=== PATIENT | female | born 1960 | race Caucasian/White ===

== ENCOUNTER → 2018-03-11 07:16 | Outpatient (CLI) | payer OTHER, SELFPAY ==
[2018-03-11 10:25] LABS: Hemoglobin A1c 5.6 % (4.2-6.3)
[2018-03-11 10:28] LABS: Anion Gap 9 (5-15); BUN 16 mg/dL (7-18); Calcium,Total 9.3 mg/dL (8.5-10.1); Chloride 104 mmol/L (98-107); Cholesterol 191 mg/dL (200); Creatinine, Serum 0.76 mg/dL (0.55-1.02); EST Glomerular Filtration Rate 83 mL/min (>60); Est Glom Filt Rate - Afr Amer 101 mL/min (>60); Glucose 118 mg/dL (74-106); High Density Lipoprotein 51 mg/dL; Potassium 3.5 mmol/L (3.5-5.1); Sodium Level 140 mmol/L (136-145); Triglycerides 123 mg/dL; Very Low Density Lipoprotein 25 mg/dL (5-40)
== END ==
PROVIDERS: Family Provider Family Medicine; PCP Family Medicine; Visit Provider Family Medicine
DX: I10 Essential (primary) hypertension (principal); E78.00 Pure hypercholesterolemia, unspecified; R73.03 Prediabetes
CPT/HCPCS: 36415; 80048; 80061; 83036

== ENCOUNTER → 2019-06-23 08:12 | Outpatient (CLI) | payer OTHER, SELFPAY ==
[2019-06-23 10:31] LABS: Anion Gap 9 (5-15); BUN 14 mg/dL (7-18); Chloride 103 mmol/L (98-107); Cholesterol 184 mg/dL (200); Creatinine, Serum 0.78 mg/dL (0.55-1.02); EST Glomerular Filtration Rate 81 mL/min (>60); Est Glom Filt Rate - Afr Amer 98 mL/min (>60); Glucose 126 mg/dL (74-106); Hemoglobin A1c 5.6 % (4.2-6.3); High Density Lipoprotein 50 mg/dL; Sodium Level 141 mmol/L (136-145); Triglycerides 127 mg/dL; Very Low Density Lipoprotein 25 mg/dL (5-40)
== END ==
PROVIDERS: Family Provider Family Medicine; PCP Family Medicine; Referring Provider Family Medicine; Visit Provider Family Medicine
DX: I10 Essential (primary) hypertension (principal); E78.00 Pure hypercholesterolemia, unspecified; R73.03 Prediabetes
CPT/HCPCS: 36415; 80048; 80061; 83036

== ENCOUNTER → 2019-09-01 14:08 | Outpatient (CLI) | payer OTHER, SELFPAY ==
[2019-09-01 15:55] LABS: Anion Gap 6 (5-15); BUN 14 mg/dL (7-18); BUN/Creat Ratio 17.6 RATIO (10-20); Calcium,Total 9.4 mg/dL (8.5-10.1); Chloride 103 mmol/L (98-107); EST Glomerular Filtration Rate 79 mL/min (>60); Est Glom Filt Rate - Afr Amer 95 mL/min (>60); Glucose 91 mg/dL (74-106); Potassium 3.4 mmol/L (3.5-5.1); Sodium Level 139 mmol/L (136-145)
== END ==
PROVIDERS: Family Provider Family Medicine; PCP Family Medicine; Referring Provider Family Medicine; Visit Provider Family Medicine
DX: I10 Essential (primary) hypertension (principal)
CPT/HCPCS: 36415; 80048

== ENCOUNTER → 2020-08-09 12:16 | Outpatient (CLI) | payer OTHER, SELFPAY ==
--- NOTE | 2020-08-09 12:20 | RAD_ITS ---
STUDY: X-RAY - LEFT ANKLE REASON FOR EXAM: Female, 59 years old. Ankle injury originally from a year ago -- pain now again after walking more TECHNIQUE: 3 view(s) of the ankle. COMPARISON: None. FINDINGS: Normal visualized distal tibia and fibula. Normal medial and lateral malleoli. Normal tibiotalar articulation and ankle mortise. Plantar spur. The visualized subtalar, talonavicular, calcaneocuboid and tarsal articulations are normal. The soft tissue structures are unremarkable. RAD/Ankle min 3 Views IMPRESSION: Plantar spur Electronically Signed: Jeremy Mcelroy, at 14:33 EDT , Service support ,
== END ==
PROVIDERS: PCP Family Medicine; Referring Provider Family Medicine; Visit Provider Family Medicine
DX: S86.009A Unspecified injury of unspecified Achilles tendon, initial encounter (principal)
CPT/HCPCS: 73610

== ENCOUNTER → 2020-08-30 07:17 | Outpatient (CLI) | payer OTHER, SELFPAY ==
[2016-10-22 12:33] VITALS: BMI 43.7
--- NOTE | 2020-08-30 07:41 | MRI_ITS ---
STUDY: MRI LEFT ANKLE WITHOUT CONTRAST REASON FOR EXAM: Female, 59 years old. throbbing burning pain foot/heel area and over top of tarsals, injury 17 mons ago TECHNIQUE: Standardized fat and water weighted pulse sequences were obtained in all 3 orthogonal planes. COMPARISON: 08/09/2020 FINDINGS: Normal subcutis adipose space. Normal posterior tibialis tendon. Normal flexor digitorum longus tendon. Normal flexor hallucis longus tendon. Normal peroneus longus and brevis tendons. 3 cm septated ganglion of the tibialis anterior tendon on the dorsum of the foot. Normal extensor hallucis longus tendon. Normal extensor digitorum longus tendons. Diffuse thickening of the distal Achilles tendon consistent with Achilles tendinosis. Edema uptake years fat pad consistent with peritendinitis is. 1 cm retrocalcaneal bursitis. Normal plantar fascia. Normal plantar calcaneal tubercles. Normal intrinsic muscles of the rearfoot. Normal distal tibiofibular syndesmotic ligamentous complex. Normal lateral ligamentous complex. Normal subtalar ligaments and sinus tarsi. Normal deltoid ligamentous complexes. Normal plantar calcaneonavicular (spring) ligament. Normal tibiotalar articulation. Normal talar dome. There is a joint effusion of the posterior subtalar articulation with capsular distension. Normal talonavicular articulation. Normal calcaneocuboid articulation. Normal navicular-cuneiform articulations. MRI/Lower Ext Joint Only (Routine) IMPRESSION: 1. 3 cm septated ganglion of the tibialis anterior tendon. 2. Insertional Achilles tendinosis, peritendinitis is, retrocalcaneal bursitis. Electronically Signed: Arsen Mueller MD at 9:31 EDT Tel , Service support ,
== END ==
PROVIDERS: PCP Family Medicine; Referring Provider Family Medicine; Visit Provider Family Medicine
DX: S86.009A Unspecified injury of unspecified Achilles tendon, initial encounter (principal)
CPT/HCPCS: 73721

== ENCOUNTER → 2020-12-04 08:21 | Outpatient (CLI) | payer OTHER, SELFPAY ==
[2016-10-22 12:33] VITALS: BMI 43.7
[2020-12-04 10:37] LABS: ALB/GLOB Ratio 1.1 RATIO (0.9-2.4); AST(SGOT) 38 U/L (15-37); Alanine Aminotransfer ALT/SGPT 67 U/L (13-56); Albumin, Serum 3.7 g/dL (3.2-5.0); Alkaline Phosphatase 86 U/L (45-117); Anion Gap 5 (5-15); BUN 13 mg/dL (7-18); BUN/Creat Ratio 15.6 RATIO (10-20); Calcium,Total 9.2 mg/dL (8.5-10.1); Chloride 106 mmol/L (98-107); Cholesterol 197 mg/dL (200); Creatinine, Serum 0.83 mg/dL (0.55-1.02); EST Glomerular Filtration Rate 75 mL/min (>60); Est Glom Filt Rate - Afr Amer 90 mL/min (>60); Globulin 3.4 g/dL (2.2-4.2); Glucose 123 mg/dL (74-106); High Density Lipoprotein 51 mg/dL; Potassium 3.3 mmol/L (3.5-5.1); Protein, Total 7.1 g/dL (6.4-8.2); Sodium Level 140 mmol/L (136-145); Triglycerides 114 mg/dL; Very Low Density Lipoprotein 23 mg/dL (5-40)
== END ==
PROVIDERS: PCP Family Medicine; Referring Provider Family Medicine; Visit Provider Family Medicine
DX: I10 Essential (primary) hypertension (principal)
CPT/HCPCS: 36415; 80053; 80061

== ENCOUNTER 2020-12-25 17:00 | Outpatient (RCR) | payer OTHER, SELFPAY ==
--- NOTE | 2020-09-19 10:26 | HP.PTEVAL_ITS ---
Patient's Visit Information YAMILA JON is a 59 year old F referred to Physical Therapy by Dr. Frankie Krause MD with a diagnosis of L achilles tendonitis. Date of Evaluation: 09/18/20 Physical Therapist: Ronnie Rico DPT - Visit Plan Frequency: 2x /Week Duration: 4-6 Weeks Plan: Start with G/S stretching, deep friction/graston, - Subjective Pt. is here today for her initial evaluation with diagnosis of L achilles tendonitis. Pt. reports having on and off symptoms for ~18 months. She believes it all started after mowing her daughter jon in wet grass. She felt after that her achilles was buring, but eventually went away. She got back to walking working from down the street upt[place] a few miles. He achilles again started to bother her so she stopped. She was given stretches from physician which she reports not completing consistently and has not stopped all together. Pt. reports increases distal achilles tendon pain with walking, stairs and has a lot of stiffness with getting up in AMs after sitting in a chair for a long period of time. 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 Pt. is hopeful to reduce symptoms in order to get back to rectational walking with good tolerance. - Pain L achilles tendon Pain Intensity (Out of 10): 3 Pain Intensity Range: 0, 7 - Objective POSTURE: Pt. has normal foot positining, normal arch heights, no signs of equinus foot positioning. Normal wt. shifting. PALPATION: Pt. has tenderness at insertion on achilles tendon on L side. Mild soreness throughout tendon. NEURO: normal sensation, normal DTR of BLEs. ROM: Pt. has normal ankle ROM of BLEs, except 12 deg of passive DF and 8 deg of active L DF. Tightness as limiting factor. MMT: 5/5 throughout without increase in symptoms. GAIT: Pt. walks without device. She does have normal pattern on her RLE. She does have early heel off and pain and forefoot rocker moment of LLE. STAIRS: Ascending no issu es. Descending- increased pain during L loading phase, resulting in early heel off to avoid pain. - Goals Goal 1:: LTG: Pt. to be I with HEP. Goal Time Frame: 4-6 Weeks Goal 2:: STG: Pt. to have decreased reported stiffness by 50% in AMs allowing for increased tolerance with initial walking. Goal Time Frame: 2-4 Weeks Goal 3:: LTG: Pt. to report no stiffness/pain with getting up in AMs or out of chair after prolonged sitting. Goal Time Frame: 4-6 Weeks Goal 4:: LTG: Pt. to have full DF ROM of L ankle without increase in symptoms. Goal Time Frame: 4-6 Weeks Goal 5:: LTG: Pt. to walk recreational distances without 0-2/10 symptoms in L achilles. Goal Time Frame: 4-6 Weeks Goal 6:: LTG: Pt. to descend steps with 1 HR with reciprocal pattern without increase in symptoms. Goal Time Frame: 4-6 Weeks - Rehabilitation Potential Physical Therapy Diagnosis: Pt. has signs and symptoms consistent with L achilles tendonitis. Pt. is hypomobile into L DF with pain and tightness as limiting factor. She frequently c/o increased stiffness in AMs and after prolonged sitting and increased pain with walking and descending steps. Pt. would benefit from PT to work on G/S stretching, modalities to reduce symptoms, progressing to loading of achilles tendon to increase tensile strength allowin for good tolerance when loading this tissue. Rehabilitation Potential: Good - Anticipated Interventions Patient/Client Instruction: Educate patient on: Condition, Plan of Care, Risk Factors, Benefits of Fitness Program For the Purpose of:: To facilitate caregiver knowledge, To improve self management, To prevent re-injury, To improve ability to perform tasks related to life management, To improve tolerance to ADL's Therapeutic Exercise to Include: Strength training, Power training, Endurance training, Postural training, Flexibilty training, Gait and locomotor training, Passive ROM, Active ROM For the Purpose of:: To decrease pain, To decrease swelling/inflammation, To increase ROM, To improve nutrient delivery to tissue, To increase oxygenation perfusion, To improve muscle performance and motor function, To improve gait and locomotor functions, To improve health of tissue, To decrease soft tissue restriction Manual Therapy Techniques to Include: Mobilization, Passive ROM, Functional dry needling, Soft tissue mobilization For the Purpose of:: To decrease pain, To decrease swelling/inflammation, To increase ROM, To improve nutrient delivery to tissue, To increase oxygenation perfusion, To improve muscle performance and motor function, To increase tolerance to activity/condition/position, To improve gait and locomotor functions, To improve health of tissue Cryotherapy (ice pack, ice massage): Yes Thermo therapy (hot pack): Yes Ultrasound (thermal/non thermal): Yes For the Purpose of:: To decrease pain, To decrease swelling/inflammation, To increase ROM, To improve nutrient delivery to tissue, To increase oxygenation perfusion, To improve muscle performance and motor function Thank you for the opportunity to evaluate your patient. For Medicare and Medicare HMO plans, please review the plan of care and approve it. It will need to be FAXED BACK to us at [phone] for Medicare purposes. For Medicare only, by signing this I certify the plan of care. Please let me know if there are questions or concerns regarding this plan of care. Physician Signature: Date:
== END 2020-12-25 19:00 | disposition home or self-care (01) ==
LOC: PT 17:00
PROVIDERS: PCP Family Medicine; Referring Provider Family Medicine; Visit Provider Family Medicine
DX: M76.60 Achilles tendinitis, unspecified leg (principal)
CPT/HCPCS: 97035; 97110; 97161

== ENCOUNTER 2021-11-28 17:46 | Outpatient (CLI) | payer OTHER, SELFPAY | END 2021-11-28 23:59 | disposition short-term general hospital (02) | PROVIDERS: PCP Family Medicine; Visit Provider Registered Nurse | DX: U07.1 COVID-19 (principal) | CPT/HCPCS: 87635; U0003; U0005 ==

== ENCOUNTER 2021-12-03 12:23 | Outpatient (CLI) | payer OTHER, SELFPAY ==
[2021-12-03] MEDS: 0.9% Saline Lock 10 ML Syringe IV (12:42)
[2021-12-03 12:46] VITALS: BP 161/86; PULSE 72; RESP 16; TEMP 36.9; O2SAT 96; BMI 44.2
[2021-12-03 13:36] VITALS: BP 132/68; PULSE 62; RESP 16; TEMP 37.1; O2SAT 98
[2021-12-03 14:32] VITALS: BP 143/85; PULSE 81; RESP 16; TEMP 36.9; O2SAT 97
== END 2021-12-03 23:59 | disposition home or self-care (01) ==
LOC: MS3OUT 12:23 → MS3 12:24
PROVIDERS: PCP Family Medicine; Referring Provider Nurse Practitioner Adult Health; Visit Provider Nurse Practitioner Adult Health
DX: U07.1 COVID-19 (principal)
CPT/HCPCS: J7050; M0245; Q0245; A4216; Q0244

== ENCOUNTER → 2023-03-11 | Outpatient (CLI) | payer OTHER, SELFPAY ==
[2023-03-11 10:39] LABS: ALB/GLOB Ratio 1.2 RATIO (0.9-2.4); AST(SGOT) 115 U/L (15-37); Alanine Aminotransfer ALT/SGPT 150 U/L (13-56); Albumin, Serum 3.7 g/dL (3.2-5.0); Alkaline Phosphatase 94 U/L (45-117); Anion Gap 7 (5-15); BUN 18 mg/dL (7-18); BUN/Creat Ratio 21.3 RATIO (10-20); Calcium,Total 9.1 mg/dL (8.5-10.1); Chloride 102 mmol/L (98-107); Cholesterol 211 mg/dL (200); Creatinine, Serum 0.84 mg/dL (0.55-1.02); EST Glomerular Filtration Rate 73 mL/min (>60); Est Glom Filt Rate - Afr Amer 88 mL/min (>60); Globulin 3.2 g/dL (2.2-4.2); Glucose 127 mg/dL (74-106); High Density Lipoprotein 50 mg/dL; Potassium 3.5 mmol/L (3.5-5.1); Protein, Total 6.9 g/dL (6.4-8.2); Sodium Level 136 mmol/L (136-145); Triglycerides 132 mg/dL; Very Low Density Lipoprotein 26 mg/dL (5-40)
== END | disposition home or self-care (01) ==
LOC: MFPLAB 08:33
PROVIDERS: PCP Family Medicine; Referring Provider Family Medicine; Visit Provider Family Medicine
DX: R79.89 Other specified abnormal findings of blood chemistry (principal); I10 Essential (primary) hypertension
CPT/HCPCS: 36415; 80053; 80061

== ENCOUNTER → 2023-04-15 | Outpatient (CLI) | payer OTHER, SELFPAY ==
[2023-04-16 12:09] LABS: HEPATITIS B SURFACE AG Negative (Negative); Hep C Antibodies Non Reactive (Non Reactive); Hepatitis A IgM Antibody Negative (Negative); Hepatitis B Core AB IgM Negative (Negative)
== END | disposition home or self-care (01) ==
LOC: MFPLAB 10:59
PROVIDERS: PCP Family Medicine; Visit Provider Family Medicine
DX: R79.89 Other specified abnormal findings of blood chemistry (principal)
CPT/HCPCS: 36415; 80074

== ENCOUNTER 2023-05-28 08:47 | Day surgery (SDC) | payer OTHER, SELFPAY ==
[2023-05-28] VITALS (7 sets, daily range): BP systolic 114–147; BP diastolic 59–85; PULSE 52–63; RESP 16; TEMP 36.4–36.8; O2SAT 96–100; BMI 44.8
--- NOTE | 2023-05-28 09:24 | PCM.HP.BLA ---
History and Physical Date of Admission: 05/28/23 Visit Reasons: BLOOD IN STOOL Chief Complaint: blood in stool Allergies bupropion [From Wellbutrin] Allergy (Verified 12/03/21 10:10) Itchingmorphine Allergy (Verified 12/03/21 10:10) Itching Medications chlorthalidone 50 mg tablet 25 mg PO DAILY 10/19/16 [History Confirmed 03/22/23] metoprolol succinate 100 mg tablet,extended release 24 hr 100 mg PO DAILY 10/19/16 [History Confirmed 03/22/23] PFSH Family History (Updated 03/22/23 @ 15:11 by Jeannine Guevara) Mother Diabetes Breast cancerFather CancerMother Hypertension Social History Smoking Status: Never smoker HPI HPI HPI: 62-year-old female was referred by Dr. Kat Koehler for surgical consultation regarding blood in her stool. A written compromise surgical consult recommendations will return to her. Laboratory of March 11, 2023 demonstrates a BUN of 18 and a creatinine of 0.84. Liver function tests demonstrate a total bilirubin of 0.7 with an AST of 150 and an ALT of 150 alkaline phosphatase of 94. Cholesterol is 211 with an LDL of 135 The patient used to have Dr. Krause. She is now scheduled to see Dr. Jackelyn Edwards. Patient is aware that she has elevated liver function tests. She is unclear as to the etiology. Her concern is intermittent severe constipation with abnormal caliber of her stools. She also feels that she has some prolapsing hemorrhoidal tissue. She will occasionally have blood in her stools when she is constipated. Previous colonoscopy was done by Dr. Rm Bernabe 2014. Family history notable for polyps in her father. The only medicines she is on is chlorthalidone and metoprolol for blood pressure. She is not on any cholesterol medications. I assisted in the past with a complicated ventral incisional herniorrhaphy with mesh. She states that this will show up with the Wediv[employer] scanner ROS General General: No weight change, appetite, fatigue, colon cancer, breast cancer or weakness HEENT HEENT: No difficulty swallowing, eye injury, eye surgery, swollen glands or hoarseness Endo Endocrine: No thyroid disease, diabetes mellitus, thyroid cancer, Hair loss, heat intolerance or cold intolerance Skin Skin: No rash or changing moles Breast Breast: No left breast lump, right breast lump, nipple discharge, breast pain, abnormal mammogram, abnormal US or breast enlargement [facility] [place] Musculoskeletal: No back problems, arthritis, rheumatoid arthritis, gout or joint pain Cardio Cardiovascular: Yes high blood pressure; No murmur, pacemaker, heart disease, atrial fibrillation, heart attack, heart stent, palpitations, shortness of breat with exertion or chest pain Psych Psychiatric: No depression, anxiety or hearing voices Resp Respiratory: No shortness of breath, No sleep apnea, No cough, No COPD, No asthma, No emphysema and No wheezing Gastro Gastrointestinal: No abdominal pain, No nausea or vomiting, No diarrhea, No constipation, No blood in stool, No acid reflux, Yes hemorrhoids, No ulcers, No gallbladder problem and No black,tarry stools Dani Hematologic: No blood thinners, No blood disorders, No bleeding, No anemia and No blood clots Neuro Neurologic: No system reviewed and no additional complaints, except as documented, No as per HPI, No abnormal gait, No abnormal hearing, No abnormal movements, No abnormal speech, No behavioral changes, No burning sensations, No confusion, No convulsions, No disequilibrium, No dizziness, No localized weakness, No frequent falls, No headache(s), No lack of coordination, No loss of vision, No memory loss, No numbness, No other visual disturbances, No radicular pain, No restless legs, No sensory deficit, No syncope, No tingling, No tremor(s), No weakness and No other Exam Const General: cooperative, comfortable and no acute distress [facility] Head: normal to inspection Eyes General: appearance normal, both eyes and all related structures Neck Neck: normal visual inspection Cardio Rate: regular rate Rhythm: regular rhythm GI Palpation: soft and no hepatosplenomegaly Other: Healed right pararectus incision. Some slight tenderness but I cannot detect a recurrent hernia. Patient examined both supine and upright. No liver tenderness. Bowel sounds present unremarkable. [facility] [place] Cervical Spine: normal cervical lordosis Skin General: no rashes or lesions noted Neuro General: patient alert, patient awake and patient oriented x3 Extrem General: no calf tenderness Psych Appearance: grossly normal Assessment and Plan Assessment and Plan (1) Change in bowel habit: Status: Acute (2) Hemorrhoids: Status: Acute Plan: Patient is concerned about change in bowel habit with constipation change in caliber of her stools and some external hemorrhoidal tissue. I propose for her a colonoscopy with possible biopsy or polypectomy as indicated. Very careful inspection of the anal rectal area will be performed at that time. It is of note that the patient has recently been determined is having abnormal liver function tests. I have suggested to the patient that that we will need to be more fully evaluated before we will consider any potential type of surgical intervention. If she has external hemorrhoid disease that would be best treated with a surgical hemorrhoidectomy but we would want to assure good liver health. It is of additional note that the patient's current BMI is 45.2. That would complicate surgical intervention. I appreciate the opportunity of assisting with the surgical care and we will proceed as noted with a colonoscopy. Copy: Dr. Jackelyn Rocha M.D., F.A.C.S I have examined the patient and the H&P has been reviewed. There are no clinical changes since date of exam. Saúl Rocha M.D., F.A.C.S.
[2023-05-28] MEDS: Lactated Ringers 1,000 ML 15 ML IV (09:40)
--- NOTE | 2023-05-28 10:14 | OP.CCLET_ITS ---
05/28/2023 Chanel Edwards, Do Re : Colonoscopy procedure for Marie Sotelo Dear Grace This procedure was performed on Sunday, May 28, 2023. My impressions and recommendations are as follows: Impressions : - Non-thrombosed external hemorrhoids, non-thrombosed internal hemorrhoids and internal hemorrhoids that prolapse with straining, but require manual replacement into the anal canal (Grade III) found on digital rectal exam. - Diverticulosis in the sigmoid colon. - The examination was otherwise normal. - No specimens collected. Recommendations : - Discharge patient to home. - Resume previous diet. - Continue present medications. - Repeat colonoscopy in 10 years for screening purposes. - Return to my office in 1 week to discuss possible multi column surgical hemorrhoidectomy. The patient will need medical clearance because of abnormal liver function tests. My findings are described in the full procedure note, which is enclosed. If I can be of further assistance, please feel free to contact me at Doctor phone number(s): Work: . Sincerely, Saúl Rocha MD 05/28/2023 10:14:28 AM This report has been signed electronically.
--- NOTE | 2023-05-28 10:14 | OP.COLON_ITS ---
Patient Name: Marie Sotelo Procedure Date: 05/28/2023 9:49 AM Date of : 1960 Age: 62 Procedure: Colonoscopy Indications: Change in bowel habits, Change in stool caliber Providers: Saúl Rocha MD Referring MD: Saúl Rocha MD Medicines: See the Anesthesia note for documentation of the administered medications Patient Profile: Last Colonoscopy: 2014. Complications: No immediate complications. Procedure: Pre-Anesthesia Assessment: - Prior to the procedure, a History and Physical was performed, and patient medications and allergies were reviewed. The patient's tolerance of previous anesthesia was also reviewed. The risks and benefits of the procedure and the sedation options and risks were discussed with the patient. All questions were answered, and informed consent was obtained. Prior Anticoagulants: The patient has taken no previous anticoagulant or antiplatelet agents. ASA Grade Assessment: III - A patient with severe systemic disease. After reviewing the risks and benefits, the patient was deemed in satisfactory condition to undergo the procedure. After I obtained informed consent, the scope was passed under direct vision. Throughout the procedure, the patient's blood pressure, pulse, and oxygen saturations were monitored continuously. The colonoscope was introduced through the anus and advanced to the cecum, identified by appendiceal orifice and ileocecal valve. The colonoscopy was performed without difficulty. The patient tolerated the procedure well. The quality of the bowel preparation was good. The ileocecal valve and the appendiceal orifice were photographed. Scope In: 9:57:19 AM Scope Withdrawal Time 0 hours 7 minutes 31 seconds Scope Out: 10:09:31 AM Total Procedure Duration Time 0 hours 12 minutes 12 seconds Findings: The digital rectal exam findings include non-thrombosed external hemorrhoids, non-thrombosed internal hemorrhoids and internal hemorrhoids that prolapse with straining, but require manual replacement into the anal canal (Grade III). Multiple diverticula were found in the sigmoid colon. The exam was otherwise without abnormality. Impression: - Non-thrombosed external hemorrhoids, non-thrombosed internal hemorrhoids and internal hemorrhoids that prolapse with straining, but require manual replacement into the anal canal (Grade III) found on digital rectal exam. - Diverticulosis in the sigmoid colon. - The examination was otherwise normal. - No specimens collected. Recommendation: - Discharge patient to home. - Resume previous diet. - Continue present medications. - Repeat colonoscopy in 10 years for screening purposes. - Return to my office in 1 week to discuss possible multi column surgical hemorrhoidectomy. The patient will need medical clearance because of abnormal liver function tests. Procedure Code(s): --- Professional --- 85938, Colonoscopy, flexible; diagnostic, including collection of specimen(s) by brushing or washing, when performed (separate procedure) Diagnosis Code(s): --- Professional --- K64.2, Third degree hemorrhoids K64.4, Residual hemorrhoidal skin tags R19.4, Change in bowel habit R19.5, Other fecal abnormalities K57.30, Diverticulosis of large intestine without perforation or abscess without bleeding CPT copyright 2017 [employer]. All rights reserved. The codes documented in this report are preliminary and upon physician coder review may be revised to meet current compliance requirements. Saúl Rocha MD 05/28/2023 10:14:28 AM This report has been signed electronically. Number of Addenda: 0 Note Initiated On: 05/28/2023 9:49 AM
== END 2023-05-28 11:02 | disposition home or self-care (01) ==
LOC: EN 08:49 → AC 08:52
PROVIDERS: PCP Family Medicine; Referring Provider Surgery; Visit Provider Surgery
PROC: 0DJD8ZZ Inspection of Lower Intestinal Tract, Via Natural or Artificial Opening Endoscopic (ICD-10-PCS; CPT 45378; principal; 2023-05-28 09:40)
DX: K57.30 Diverticulosis of large intestine without perforation or abscess without bleeding (principal); K64.4 Residual hemorrhoidal skin tags; K64.2 Third degree hemorrhoids; R19.4 Change in bowel habit; R19.5 Other fecal abnormalities
CPT/HCPCS: 45378; J7120; J2405

== ENCOUNTER → 2024-04-27 | Outpatient (CLI) | payer OTHER, SELFPAY ==
[2024-04-27 10:50] LABS: Bacteria 0 SEEN /hpf (None Seen); Mucous, Urine 0 SEEN /hpf (<or=2+); Red Blood Cells-Urine 0 SEEN /hpf (0-5); Squamous Epithelial Cells - UA 0 SEEN /hpf (5-10); White Blood Cells 0 SEEN /hpf (0-5)
[2024-04-27 12:17] LABS: Absolute Lymphocyte Count 2.55 X10^3/uL (0.83-4.51); Basophil# 0.08 X10^3/uL; Basophil% 1.3 % (0-1); Eosinophil# 0.21 X10^3/uL; Eosinophils% 3.3 % (0-5); Hematocrit 44.5 % (37-47); Hemoglobin 15.3 g/dL (12.0-15.0); Lymphocyte # 2.55 X10^3/ul (0.83-4.51); Lymphocyte % 40.2 % (19-41); Mean Corp Hgb Conc 34.4 g/dL (32-36); Mean Corpuscular Hgb 30.1 pg (27.0-32.0); Mean Corpuscular Volume 87.4 fL (81-99); Mean Platelet Vol. 11.3 fl (6.2-12.0); Monocyte# 0.49 X10^3/uL; Monocyte% 7.7 % (0-10); NRBC Flagged by Analyzer 0 % (0-5); Neutrophil % 47.2 % (47-70); Platelet Count 248 K/mm3 (150-450); RBC Distribution Width CV 12.4 % (11.6-14.6); RBC Distribution Width SD 39.7 fl (35.1-43.9); Red Blood Count 5.09 M/mm3 (4.2-5.4); White Blood Count 6.4 K/mm3 (4.4-11.0)
[2024-04-27 12:20] LABS: Color, Urine Yellow (Yellow); Glucose, Dipstick Normal (Normal); Ketone-Dipstick Negative (Negative); Leukocyte Esterase-Dipstick Negative /ul (Negative); Nitrite-Dipstick Negative (Negative); Occult Blood-Urine Negative /ul (Negative); Protein-Dipstick Negative (Negative); Specific Gravity, Urine 1.005 (1.002-1.030); Urine Bilirubin Dipstick Negative (Negative); Urine Clarity Clear (Clear); Urine Urobilinogen Normal (Normal)
[2024-04-27 12:52] LABS: Hemoglobin A1c 5.3 % (3.8-5.6)
[2024-04-27 13:02] LABS: Vitamin B12 489 pg/mL (211-911); Vitamin D,25 Hydroxy 32.6 ng/mL
[2024-04-27 13:44] LABS: ALB/GLOB Ratio 1.1 RATIO (0.9-2.4); AST(SGOT) 100 U/L (15-37); Alanine Aminotransfer ALT/SGPT 143 U/L (13-56); Albumin, Serum 3.9 g/dL (3.2-5.0); Alkaline Phosphatase 99 U/L (45-117); Anion Gap 6 (5-15); BUN 15 mg/dL (7-18); BUN/Creat Ratio 21.5 RATIO (10-20); Calcium,Total 9.7 mg/dL (8.5-10.1); Chloride 103 mmol/L (98-107); Cholesterol 216 mg/dL (200); EST Glomerular Filtration Rate 90 mL/min (>60); Est Glom Filt Rate - Afr Amer 109 mL/min (>60); Globulin 3.4 g/dL (2.2-4.2); Glucose 94 mg/dL (74-106); High Density Lipoprotein 50 mg/dL; Magnesium 2.5 mg/dL (1.6-2.6); Potassium 3.4 mmol/L (3.5-5.1); Protein, Total 7.3 g/dL (6.4-8.2); Sodium Level 137 mmol/L (136-145); T4 Free Direct 0.89 ng/dL (0.76-1.46); Thyroid Stim Hormone (TSH) 8.03 uIU/mL (0.358-3.74); Triglycerides 175 mg/dL; Very Low Density Lipoprotein 35 mg/dL (5-40)
== END | disposition home or self-care (01) ==
LOC: MFPLAB 10:48
PROVIDERS: PCP Family Medicine; Visit Provider Family Medicine
DX: I10 Essential (primary) hypertension (principal); R73.03 Prediabetes; R53.83 Other fatigue
CPT/HCPCS: 36415; 80053; 80061; 81001; 82306; 82607; 83036; 83735; 84439; 84443; 85025

== ENCOUNTER → 2024-05-05 | Outpatient (CLI) | payer OTHER, SELFPAY ==
[2024-05-09 09:09] LABS: Anti-Thyroglobulin AB < 1.0 IU/mL (0.0-0.9); Thyroglobulin, Serum Qt. 3.5 ng/mL (1.5-38.5); Thyroid Peroxidase AB 44 IU/mL (0-34)
== END | disposition home or self-care (01) ==
LOC: MFPLAB 11:28
PROVIDERS: PCP Family Medicine; Visit Provider Family Medicine
DX: R79.89 Other specified abnormal findings of blood chemistry (principal)
CPT/HCPCS: 36415; 84432; 86376; 86800

== ENCOUNTER → 2024-09-29 | Outpatient (CLI) | payer OTHER, SELFPAY ==
[2024-09-29 10:19] LABS: Absolute Lymphocyte Count 1.98 X10^3/uL (0.83-4.51); Absolute Neutrophil Count 2.9 X10^3/uL (2.0-7.7); Basophil# 0.05 X10^3/uL; Basophil% 0.9 % (0-1); Eosinophil# 0.21 X10^3/uL; Eosinophils% 3.7 % (0-5); Hematocrit 43.7 % (37-47); Hemoglobin 15.2 g/dL (12.0-15.0); Lymphocyte # 1.98 X10^3/ul (0.83-4.51); Lymphocyte % 34.9 % (19-41); Mean Corp Hgb Conc 34.8 g/dL (32-36); Mean Corpuscular Hgb 30.2 pg (27.0-32.0); Mean Corpuscular Volume 86.9 fL (81-99); Mean Platelet Vol. 10.7 fl (6.2-12.0); Monocyte# 0.48 X10^3/uL; Monocyte% 8.5 % (0-10); NRBC Flagged by Analyzer 0 % (0-5); Neutrophil # 2.94 X10^3/uL (2.7-7.7); Neutrophil % 51.6 % (47-70); Platelet Count 211 K/mm3 (150-450); RBC Distribution Width CV 12.4 % (11.6-14.6); RBC Distribution Width SD 38.7 fl (35.1-43.9); Red Blood Count 5.03 M/mm3 (4.2-5.4); White Blood Count 5.7 K/mm3 (4.4-11.0)
[2024-09-29 11:09] LABS: ALB/GLOB Ratio 1.1 RATIO (0.9-2.4); AST(SGOT) 54 U/L (15-37); Alanine Aminotransfer ALT/SGPT 95 U/L (13-56); Albumin, Serum 3.8 g/dL (3.2-5.0); Alkaline Phosphatase 96 U/L (45-117); Anion Gap 6 (5-15); BUN 11 mg/dL (7-18); BUN/Creat Ratio 14.9 RATIO (10-20); Calcium,Total 9.3 mg/dL (8.5-10.1); Chloride 104 mmol/L (98-107); Cholesterol 209 mg/dL (200); Creatinine, Serum 0.74 mg/dL (0.55-1.02); EST Glomerular Filtration Rate 84 mL/min (>60); Est Glom Filt Rate - Afr Amer 102 mL/min (>60); Globulin 3.4 g/dL (2.2-4.2); Glucose 126 mg/dL (74-106); High Density Lipoprotein 54 mg/dL; Potassium 3.3 mmol/L (3.5-5.1); Protein, Total 7.2 g/dL (6.4-8.2); Sodium Level 138 mmol/L (136-145); T4 Free Direct 0.93 ng/dL (0.76-1.46); Triglycerides 143 mg/dL; Very Low Density Lipoprotein 29 mg/dL (5-40)
[2024-10-02 14:50] LABS: Hemoglobin A1c 5.7 % (3.8-5.6)
== END | disposition home or self-care (01) ==
LOC: MTLAB 07:42
PROVIDERS: PCP Family Medicine; Referring Provider Family Medicine; Visit Provider Family Medicine
DX: R73.09 Other abnormal glucose (principal); E78.00 Pure hypercholesterolemia, unspecified; E06.3 Autoimmune thyroiditis
CPT/HCPCS: 36415; 80053; 80061; 83036; 84439; 84443; 85025

== ENCOUNTER → 2025-04-26 | Outpatient (CLI) | payer OTHER, SELFPAY ==
--- NOTE | 2025-04-26 16:49 | CT_ITS ---
PROCEDURE: ABDOMEN/PELVIS WITH CONTRAST 04/26/2025 REASON FOR EXAM: RLQ ABD PAIN TECHNIQUE: Abdomen and pelvis CT with intravenous and oral contrast. Coronal and Sagittal reconstruction series were provided. PATIENT PREPARATION: Per protocol CONTRAST: 100 mL [id number] One or more dose reduction techniques were used (e.g., Automated exposure control, adjustment of the mA and/or kV according to patient size, use of iterative reconstruction technique. RADIATION DOSE SUMMARY: CTDlvol: 24.2 mGy DLP: 1345 mGycm COMPARISON: None FINDINGS: Lung bases: Unremarkable Liver: Enlarged with diffuse fatty infiltration. Gallbladder: Unremarkable Spleen: Normal size. Pancreas: Normal size without evidence of mass surrounding inflammation or ductal dilation. Adrenals: Unremarkable Kidneys: No hydronephrosis or stone. Bladder: There are punctate foci of air within the anterior dependent aspect of the urinary bladder. Reproductive Organs: Unremarkable Bowel: No obstruction or inflammation. There are ovoid heterogeneous contents containing foci of air present within the stomach which is outlined by oral contrast and measures up to 12.2 cm in size. The appendix is surgically absent. Lymph nodes: No significant lymphadenopathy. Vasculature: Minimal aortic atherosclerosis. Bones: Degenerative changes of the spine. Abdominal wall: Postoperative changes throughout the anterior abdominal wall. CT/Abdomen/Pelvis WITH Contrast IMPRESSION: 1. Punctate foci of air in the urinary bladder. In the absence of recent instr umentation, findings may be the result of emphysematous cystitis. 2. Ovoid heterogeneous contents in the stomach measuring 12.2 cm, which could represent gastric bezoar. Correlate with history. 3. Hepatic steatosis and hepatomegaly. Reading Location: [facility]
--- OUTSIDE RECORDS SUMMARY | 2025-04-26 22:13 | XMS RPT_ITS | CCD ---
Author Organization [facility] Care Team Providers Care Azure Principal Solution Specialist Name Role Phone Tommy Dacosta MD Primary Care Provider Dr. Tomas Carlson Referring Provider Dr. Saúl Rocha Attending Provider DO Chanel Edwards Primary Care Provider Dr. Saúl Rocha Referring Provider Dr. Saúl Rocha Other Provider Tommy Dacosta MD Primary Care Provider Tommy Christian MD Primary Care Provider PENELOPE FRANK Referring Unavailable TOMMY CHRISTIAN Primary Care Unavailable PENELOPE FRANK Attending Unavailable TOMMY CHRISTIAN Primary Care Unavailable Tommy Christian Primary Care Unavailable Tommy Christian Attending Unavailable Tommy Christian Attending Unavailable Tommy Christian Primary Care Unavailable Aman Medeliln Referring Unavailable Aman Medellin Attending Unavailable Aman Medellin Primary Care Unavailable Tommy Christian Primary Care Unavailable Tommy Christian Referring Unavailable Tommy Christian Attending Unavailable Allergies Allergy Classification Reported Allergen(s) Allergy Type Date of Onset Reaction(s) Facility (7 sources) buPROPion; Translations: [BUPROPION] Drug Allergy 10-17-[address] [facility] Work Phone: (7 sources) Morphine; Translations: [MORPHINE] Drug Allergy 12-03-[address] [facility] (1 source) buPROPion Drug Allergy 06-21-2023 [facility] (1 source) Morphine Drug Allergy 06-21-2023 [facility] Medications Current Medications Medication Drug Class(es) Dates Sig (Normalized) Sig (Original) chlorthalidone 50 mg oral tablet (6 sources) Thiazide-like Diuretic Start: 10-19-2016 take 25 mg by mouth once daily Chlorthalidone Active 25 MG PO DAILY October 19, 2016 1:00am take 1 tablet by mouth once kathie y chlorthalidone 25 mg tablet Take 25 mg by mouth once daily. Active Comment on above: Take 25 mg by mouth once daily. levonorgestrel 0.198739 mg/hr intrauterine system (4 sources) Progestin, Progestin-containing Intrauterine Device Start: 10-22-2016 levonorgestrel (MIRENA) 21 mcg/24 hours (8 yrs) 52 mg IUD 1 Each by INTRAUTERINE route continuous. LOT # [id number] EXP 04/20/2019 Neva Lynch Annette 10/22/2016 Active Comment on above: 1 Each by INTRAUTERI NE route continuous. LOT # [id number] EXP 04/20/2019 Neva Cris Il 24 hr metoprolol succinate 100 mg extended release oral tablet (6 sources) beta-Adrenergic Gudelia Start: 12-03-2009 metoprolol succinate(TOPROL XL 100 MG 24 HR TAB) Take one(1) tablet daily. 0 12/03/2009 Active Comment on above: Take one(1) tablet d aily. triamcinolone acetonide 1 mg/ml topical cream (4 sources) Corticosteroid Start: 09-02-2017 triamcinolone acetonide (KENALOG) 0.1 % cream Apply to affected area three times daily. 2 09/02/2017 Active Comment on above: Apply to affected ar ea three times daily. Completed/Discontinued Medications Medication Drug Class(es) Dates Sig (Normalized) Sig (Original) Sod Sulf-Pot Chloride-Mag Sulf (1 source) Start: 03-24-2023 End: 03-24-2023 take 1.479 tablets by mouth once Sod Sulf-Pot Chloride-Mag Sulf (Sutab) 1.479-0.188- 0.225 gram tablet Discontinued 0 PO per package directions March 24, 2023 12:00am March 24, 2023 9:04am PO PER PKG DIR Problems Active Problems Problem Classification Problem Date Documented Da te Episodic/Chronic Abdominal pain (1 source) Right lower quadrant pain; Translations: [Right lower quadrant pain] Onset: 04-25-2025 Episodic Essential hypertension (1 source) Essential (primary) hypertension; Translations: [Essential (primary) hypertension] Onset: 05-05-2024 Chronic Gastrointestinal hemorrhage (1 source) Hematochezia; Translations: [Melena] Episodic Immunizations and screening for infectious disease (6 sources) Patient encounter status; Translations: [Encounter for screening for human papillomavirus (HPV)] Episodic Nonmalignant breast conditions (4 sources) Fibrocystic disease of breast; Translations: [Diffuse cystic mastopathy of unspecified breast] Onset: 09-12-2015 09-12-2015 Chronic Nonmalignant breast conditions (2 sources) Breast finding ; Translations: [Dense breast tissue] 05-02-2024 Episodic Other female genital disorders (4 sources) Abnormal uterine bleeding; Translations: [Abnormal uterine and vaginal bleeding, unspecified] Onset: 10-12-2016 10-12-2016 Chronic Other gastrointestinal disorders (1 source) Altered bowel function; Translations: [Change in bowel habit] 03-22-2023 Episodic Other gastrointestinal disorders (1 source) Change in bowel habit; Translations: [Other symptoms involving digestive system] 03-22-2023 Episodic Unclassified (2 sources) Body mass index 40+ - severely obese; Translations: [Body mass index (BMI) greater than 40] 12-03-2021 Unclassified (1 source) Dense breast tissue; Translations: [Dense breast tissue] Onset: 10-23-2024 Viral infection (2 sources) Disease caused by 2019-nCoV; Translations: [COVID-19] 12-03-2021 Episodic Past or Other Problems Problem Classification Problem Date Documented Da te Episodic/Chronic Diabetes mellitus without complication (1 source) Other abnormal glucose; Translations: [Other abnormal glucose] Onset: 10-25-2024 Episodic Hemorrhoids (6 sources) External hemorrhoids; Translations: [Residual hemorrhoidal skin tags] Onset: 12-03-2005 12-03-2005 Episodic Other screening for suspected conditions (not mental disorders or infectious disease) (2 sources) Encounter for screening mammogram for malignant neoplasm of breast; Translations: [Other specified abnormal findings of blood chemistry] Onset: 05-30-2024 Episodic Results Test Name Value Interpretation Reference Range Facility MATILDA SCREENING W TOMJerry 10-23 MAT[facility] SCREENING W DAQUAN * * *Final Report* * * DATE OF EXAM: Oct 23 2024 8:44AM W [id number] - MATILDA SCREENING W DAQUAN / PROCEDURE REASON: multiple diagnoses * * * * Physician Interpretation * * * * RESULT: [address] [address] [place] [address] #[id number] - MATILDA SCREENING W DAQUAN HISTORY: Patient is 63 years old and is seen for screening and is asymptomatic in both breasts. Patient states no personal history of breast cancer. Patient states no personal history of other cancers. COMPARISON STUDIES: The present examination has been compared to prior imaging studies dated 03/21/2020 (mammogram), 03/18/2021 (mammogram), 03/18/2021 (ultrasound) and 10/20/2023 (mammogram). MAMMOGRAM TECHNIQUE: The study was acquired using full field digital technology and interpreted from soft copy. Digital Breast Tomosynthesis (DBT) images were obtained and used to assist in the interpretation of this examination. Computer-aided detection was utilized by the radiologist in the interpretation of this examination. MAMMOGRAM FINDINGS: The breasts are almost entirely fatty. No suspicious masses, calcifications or other abnormalities are seen in either breast. There are no significant changes from the prior study. IMPRESSION: There are no suspicious mammographic findings in either breast. Routine screening mammogram is recommended. Annual mammogram will be due in 1 year. BI-RADS Category 1: Negative RISK: Based on the Tyrer-Cuzick (TC) risk assessment model, this patient has a 10.3% lifetime risk of developing breast cancer, meaning they are at average risk for developing breast cancer. However, this is only an estimate based on available history provided on the patient's questionnaire. We encourage all patients to talk with their providers about these results, further recommendations for managing breast health, and appropriate supplemental screening options if the patient has dense breast tissue. Interpreting Radiologist: Germán Spears M.D. Electronically signed on: 10/24/2024 Biochemistry Technician: TORRES Transc[employer]hash Date/Time: Oct 23 2024 7:48A Dictated by: BRISA COSTA, DO This examination was interpreted and the report reviewed and electronically signed by: GERMÁN SPEARS MD on Oct 24 2024 8:55AM EST [id number] CN Normal [facility] Hemoglobin A1con 10-02-2024 HbA1c (Bld) [Mass fraction] 5.7 % High 3.8-5.6 [facility] Comment on above: Order Comment: LYNDA Daly ADD A1C TO BLOOD DRAWN 09/29/24 PER Result Comment: Norm al < 5.7 % Prediabetic 5.7 - 6.4 % Diabetic >or= 6.5 % Please note range changes. Performed By: #### L [id number] #### [facility] [address] [place], [address] CBC W/Diff, Automatedon Absolute Lymph 1.98 X10 3/uL Normal 0.83-4.51 [facility] Comment on above: Order Comment: CLEAN CATCH Performed By: #### L [id number] #### [facility] [address] [place], [address] Absolute Neut 2.9 X10 3/uL Normal 2.0-7.7 [facility] Comment on above: Order Comment: CLEAN CATCH Performed By: #### L [id number] #### [facility] [address] [place], [address] Basophils/100 WBC (Bld) 0.9 % Normal 0-1 [facility] Comment on above: Order Comment: CLEAN CATCH Performed By: #### L [id number] #### [facility] [address] [place], [address] Eosinophils/100 WBC (Bld) 3.7 % Normal 0-5 [facility] Comment on above: Order Comment: CLEAN CATCH Performed By: #### L [id number] #### [facility] [address] [place], [address] Erythrocyte distribution width (RBC) [Ratio] 12.4 % Normal 11.6-14.6 [facility] Comment on above: Order Comment: CLEAN CATCH Performed By: #### L [id number] #### [facility] [address] [place], [address] Hematocrit (Bld) [Volume fraction] 43.7 % Normal 37-47 [facility] Comment on above: Order Comment: CLEAN CATCH Performed By: #### L [id number] #### [facility] [address] [place], [address] Hemoglobin (Bld) [Mass/Vol] 15.2 g/dL High 12.0-15.0 [facility] Comment on above: Order Comment: CLEAN CATCH Performed By: #### L [id number] #### [facility] [address] [place], [address] IG% 0.400 Normal 0.0-0.9 [facility] Comment on above: Order Comment: CLEAN CATCH Result Comment: IG% - Immature Granulocytes (promyelocytes, myelocytes and metamyelocytes) > 1% indicates that a LEFT SHIFT is Present. Performed By: #### L [id number] #### [facility] [address] [place], [address] Lymphocytes/100 WBC (Bld) 34.9 % Normal 19-41 [facility] Comment on above: Order Comment: CLEAN CATCH Performed By: #### L [id number] #### [facility] [address] [place], [address] MCH (RBC) [Entitic mass] 30.2 pg Normal 27.0-32.0 [facility] Comment on above: Order Comment: CLEAN CATCH Performed By: #### L [id number] #### [facility] [address] [place], [address] MCHC (RBC) [Mass/Vol] 34.8 g/dL Normal 32-36 [facility] Comment on above: Order Comment: CLEAN CATCH Performed By: #### L [id number] #### [facility] [address] [place], [address] MCV (RBC) [Entitic vol] 86.9 fL Normal 81-99 [facility] Comment on above: Order Comment: CLEAN CATCH Performed By: #### L [id number] #### [facility] [address] [place], [address] Monocytes/100 WBC (Bld) 8.5 % Normal 0-10 [facility] Comment on above: Order Comment: CLEAN CATCH Performed By: #### L [id number] #### [facility] [address] [place], [address] Neutrophils/100 WBC (Bld) 51.6 % Normal 47-70 [facility] Comment on above: Order Comment: CLEAN CATCH Performed By: #### L [id number] #### [facility] [address] [place], [address] Nucleated RBC (Bld) [#/Vol] 0 10*3/uL Normal 0-5 [facility] Comment on above: Order Comment: CLEAN CATCH Performed By: #### L [id number] #### [facility] [address] [place], [address] Platelet mean volume (Bld) [Entitic vol] 10.7 fL Normal 6.2-12.0 [facility] Comment on above: Order Comment: CLEAN CATCH Performed By: #### L [id number] #### [facility] [address] [place], [address] Platelets (Bld) [#/Vol] 211 10*3/uL Normal 150-450 [facility] Comment on above: Order Comment: CLEAN CATCH Performed By: #### L [id number] #### [facility] [address] [place], [address] RBC (Bld) [#/Vol] 5.03 10*6/uL Normal 4.2-5.4 [facility] Comment on above: Order Comment: CLEAN CATCH Performed By: #### L [id number] #### [facility] [address] [place], [address] RDW SD 38.7 fl Normal 35.1-43.9 [facility] Comment on above: Order Comment: CLEAN CATCH Performed By: #### L [id number] #### [facility] [address] [place], [address] WBC (Bld) [#/Vol] 5.7 10*3/uL Normal 4.4-11.0 [facility] Comment on above: Order Comment: CLEAN CATCH Performed By: #### L [id number] #### [facility] [address] [place], [address] Comprehensive Metabolic Prof ilon 09-29-2024 Albumin [Mass/Vol] 3.8 g/dL Normal 3.2-5.0 [facility] Comment on above: Order Comment: CLEAN CATCH Performed By: #### L [id number] #### [facility] [address] [place], [address] Albumin/Globulin [Mass ratio] 1.1 {ratio} Normal 0.9-2.4 [facility] Comment on above: Order Comment: CLEAN CATCH Performed By: #### L [id number] #### [facility] [address] [place], [address] ALK P 96 U/L Normal 45-117 [facility] Comment on above: Order Comment: CLEAN CATCH Performed By: #### L [id number] #### [facility] [address] [place], [address] ALT [Catalytic activity/Vol] 95 U/L High 13-56 [facility] Comment on above: Order Comment: CLEAN CATCH Performed By: #### L [id number] #### [facility] [address] [place], [address] AST [Catalytic activity/Vol] 54 U/L High 15-37 [facility] Comment on above: Order Comment: CLEAN CATCH Performed By: #### L [id number] #### [facility] [address] [place], [address] Bilirubin [Mass/Vol] 0.70 mg/dL Normal 0.20-1.00 [facility] Comment on above: Order Comment: CLEAN CATCH Result Comment: For patients on eltrombopag therapy, use of Dimension Soper TBIL is not recommended. Performed By: #### L [id number] #### [facility] [address] [place], [address] BUN/CRE 14.9 RATIO Normal 10-20 [facility] Comment on above: Order Comment: CLEAN CATCH Performed By: #### L [id number] #### [facility] [address] [place], [address] CA,Total 9.3 mg/dL Normal 8.5-10.1 [facility] Comment on above: Order Comment: CLEAN CATCH Performed By: #### L [id number] #### [facility] [address] [place], [address] Chloride [Moles/Vol] 104 mmol/L Normal 98-107 [facility] Comment on above: Order Comment: CLEAN CATCH Performed By: #### L [id number] #### [facility] [address] [place], [address] CO2 [Moles/Vol] 29.0 mmol/L Normal 21.0-32.0 [facility] Comment on above: Order Comment: CLEAN CATCH Performed By: #### L [id number] #### [facility] [address] [place], [address] Creatinine [Mass/Vol] 0.74 mg/dL Normal 0.55-1.02 [facility] Comment on above: Order Comment: CLEAN CATCH Result Comment: The validity of the calculated GFR GFRAA in patients over 70 years has not been determined. Clinical correlation is essential. Performed By: #### L [id number] #### [facility] [address] [place], [address] EST GFR - AA 102 mL/min Normal >60 [facility] Comment on above: Order Comment: CLEAN CATCH Result Comment: Afri can Zimbabwean GFR Calc Performed By: #### L [id number] #### [facility] [address] [place], [address] GAP 6 Normal 5-15 [facility] Comment on above: Order Comment: CLEAN CATCH Performed By: #### L [id number] #### [facility] [address] [place], [address] GFR/1.73 sq M.predicted among non-blacks MDRD (S/P/Bld) [Vol rate/Area] 84 mL/min/{1.73_m2} Normal >60 [facility] Comment on above: Order Comment: CLEAN CATCH Result Comment: Non- GFR Calc Performed By: #### L [id number] #### [facility] [address] [place], [address] Globulin (S) [Mass/Vol] 3.4 g/dL Normal 2.2-4.2 [facility] Comment on above: Order Comment: CLEAN CATCH Performed By: #### L [id number] #### [facility] [address] [place], [address] Glucose [Mass/Vol] 126 mg/dL High 74-106 [facility] Comment on above: Order Comment: CLEAN CATCH Result Comment: Fast ing Glucose result greater than or equal to 126 mg/dL suggests DIABETES MELLITUS per A.D.A. criteria. Performed By: #### L [id number] #### [facility] [address] [place], [address] Potassium [Moles/Vol] 3.3 mmol/L Low 3.5-5.1 [facility] Comment on above: Order Comment: CLEAN CATCH Performed By: #### L [id number] #### [facility] [address] [place], [address] Sodium [Moles/Vol] 138 mmol/L Normal 136-145 [facility] Comment on above: Order Comment: CLEAN CATCH Performed By: #### L [id number] #### [facility] [address] [place], [address] T PROT 7.2 g/dL Normal 6.4-8.2 [facility] Comment on above: Order Comment: CLEAN CATCH Performed By: #### L [id number] #### [facility] [address] [place], [address] Urea nitrogen [Mass/Vol] 11 mg/dL Normal 7-18 [facility] Comment on above: Order Comment: CLEAN CATCH Performed By: #### L [id number] #### [facility] [address] [place], [address] Lipid Profileon 09-29-2024 Cholesterol [Mass/Vol] 209 mg/dL High 200 [facility] Comment on above: Order Comment: CLEAN CATCH Result Comment: <200 mg/dL Desirable 200-240 mg/dL Borderline >240 mg/dL High Risk Performed By: #### L [id number] #### [facility] [address] [place], [address] Cholesterol in HDL [Mass/Vol] 54 mg/dL Normal [facility] Comment on above: Order Comment: CLEAN CATCH Result Comment: The drugs N-Acetylcysteine and Metamizole may falsely depress this assay. Reference Range HDL <40 mg/dL Low HDL Cholesterol HDL >or= 60 mg/dL High HDL Cholesterol Performed By: #### L [id number] #### [facility] [address] [place], [address] Cholesterol in LDL [Mass/Vol] 126 mg/dL Normal 0-130 [facility] Comment on above: Order Comment: CLEAN CATCH Performed By: #### L [id number] #### [facility] [address] [place], [address] Cholesterol in VLDL [Mass/Vol] 29 mg/dL Normal 5-40 [facility] Comment on above: Order Comment: CLEAN CATCH Performed By: #### L [id number] #### [facility] [address] [place], [address] Triglyceride [Mass/Vol] 143 mg/dL Normal [facility] Comment on above: Order Comment: CLEAN CATCH Result Comment: The drugs N-Acetylcysteine and Metamizole may falsely depress this assay. Serum Triglycerides Reference Interval Normal <150 mg/dL Borderline high 150 - 199 mg/dL High 200 - 499 mg/dL Very High > or = 500 mg/dL Performed By: #### L [id number] #### [facility] [address] [place], [address] T4 Free Directon 09-29-2024 T4 FREE DIRECT 0.93 ng/dL Normal 0.76-1.46 [facility] Comment on above: Order Comment: CLEAN CATCH Performed By: #### L [id number] #### [facility] [address] [place], [address] Thyroid Stim Hormone (TSH)on 09-29-2024 TSH 4.920 uIU/mL High 0.358-3.740 [facility] Comment on above: Order Comment: CLEAN CATCH Performed By: #### L [id number] #### [facility] [address] [place], [address] Thyroglobulin w/Anti-TG ABon 05-09-2024 Anti-TG AB < 1.0 Normal 0.0-0.9 [facility] Comment on above: Result Comment: Thyr oglobulin Antibody measured by [employer] It should be noted that the presence of thyroglobulin antibodies may not be pathogenic nor diagnostic, especially at very low levels. The assay geospatial information scientist has found that four percent of individuals without evidence of thyroid disease or autoimmunity will have positive TgAb levels up to 4 IU/mL. Performed By: #### L [id number] #### [facility] [address] [place], [place], [address] THYROGLOB QUANT 3.5 ng/mL Normal 1.5-38.5 [facility] Comment on above: Result Comment: Acco rding to the National Academy of Clinical Biochemistry, the reference interval for Thyroglobulin (TG) should be related to euthyroid patients and not for patients who underwent thyroidectomy. TG reference intervals for these patients depend on the residual mass of the thyroid tissue left after surgery. Establishing a post-operative baseline is recommended. The assay limit of quantitation is 0.1 ng/mL Thyroglobulin measured by [employer] Assay Performed By: #### L [id number] #### [facility] [address] [place], [place], [address] Thyroid Peroxidase ABon 06-1 THYR PEROX AB 44 IU/mL High 0-34 [facility] Comment on above: Result Comment: Perf ormed at: - [facility] [id number] Liquid Loader: Rm Floyd PhD, Phone: [phone] Performed By: #### L [id number] #### [facility] [address] [place], [place], [address] CNOVon 05-02-2024 CNOV Office Visit (OBGYWM) MARIE JON ([id number]) 1960 F Date Time Provider Department 05/02/24 8:20 AM PENELOPE FRANK During your visit today, we recorded the following information about you: Blood pressure Weight Height 130/82 110.3 kg 1.6 m Penelope Frank MD 05/02/2024 9:11 AM Signed Marie is a 63 year old who presents for an annual gynecologic exam without complaints. Postmenopausal: Yes since age 56 HRT use: No. Last Pap: 03/18/2023 normal HPV: 03/15/2023 negative History of abnormal pap: No Last mammogram: 2022 normal History of abnormal mammogram: No Sexually active: Yes OB History T0 L3 SAB0 IAB0 Ectopic0 Multiple0 Live Births0 Contract Attorney History LMP: 02/21/2018 (Within Weeks), Postmenopausal Age at Menarche: Age at First : Age at Menopause: Contract Attorney History Comments: Sexual Activity: Yes; Male Contraception: Vasectomy PAST MEDICAL HISTORY Diagnosis Date Chronic depressive personality disorder Diverticulosis of colon (without mention of hemorrhage) Diverticulosis Fibrocystic breast left Hemorrhage of rectum and anus Incisional hernia without mention of obstruction or gangrene Obesity, unspecified Unspecified hemorrhoids without mention of complication Hemorrhoids PAST SURGICAL HISTORY Procedure Laterality Date APPENDECTOMY DELIVERY ONLY x2 , low cervical ENDOMETRIAL BX W/WO ENDOCERVIX BX W/O DILAT SPX 11/25/2007, 12/03/2009 EXCISION SINGLE EXTERNAL PAPILLA OR TAG ANUS 12/30/05 Excision of hemorrhoidal tag INSERTION OF IUD 10/22/2016 REPAIR FIRST ABDOMINAL WALL HERNIA RPR RECRT INCAL/VNT HERNIA REDUCIBLE 07/24 TONSILLECTOMY PRIMARY/SECONDARY Tonsillectomy FAMILY HISTORY Problem Relation Age of Onset Breast Cancer Mother developed at 67 Diabetes Father Hypertension Father Diabetes Paternal Aunt Diabetes Paternal Uncle Diabetes Paternal Uncle Diabetes Paternal Grandmother SOCIAL HISTORY Social History Tobacco Use Smoking status: Never Smokeless tobacco: Never Vaping Use Vaping Use: Never used Substance Use Topics Alcohol use: Yes Comment: occassional 3-4x per year Drug use: No REVIEW OF SYSTEMS Abdomen: No abdominal pain, nausea, vomiting, diarrhea, or constipation. No bloating, early satiety, indigestion, or increased flatulence. Bladder: No dysuria, gross hematuria, urinary frequency, urinary urgency, or incontinence Breast: No breast lumps, nipple d/c, overlying skin changes, redness or skin retraction Allergies and current medication updated:Yes EXAM: BP 130/82 Ht 5' 3 (1.60m) Wt 243 lb 3.2 oz (110.3kg) LMP 02/21/2018 BMI 43.09 kg/(m2). GENERAL: pleasant, female in no apparent distress HEENT: Normocephalic, atraumatic, mucus membranes moist, and no lesions NECK: Supple, full range of motion, no adenopathy, and thyroid normal DERMATOLOGY: Normal, without lesions, non-icteric, and non-hirsute BREAST: soft, non-tender, symmetric, no dominant mass, normal nipple-areolar complex, no lymphadenopathy, and no nipple discharge CHEST: Normal inspiratory effort ABDOMEN: soft, non-tender, and no masses PELVIC: external genitalia normal, normal Bartholin's glands, urethra, Kulpmont's glands, no vulvar lesions, no cervical lesions, good vaginal support, physiologic discharge present, normal appearing perineal body and perianal region BIMANUAL: uterus normal size, shape and consistency, no adnexal masses, and non-tender RECTOVAGINAL: small hemorrhoid on anus NEURO: alert and oriented x3,exam grossly non-focal EXTREMITIES: normal ASSESSMENT/PLAN: 1) Health maintenance: Pap/HPV up to date. Mammogram up to date 2) Follow up one year or sooner as needed Penelope Frank MD Allergies As of Date: 05/02/2024 Noted Allergy Reaction MORPHINE 12/03/2005 9 - Itching WELLBUTRIN (BUPROPION) 10/17/2012 2 - Rash Date Reviewed: 05/02/2024 Reviewed by: Penelope Frank MD - Fully Assessed Reason for Visit: Well Woman [1463] Primary Visit Diagnosis:Encounter for gynecological examination (general) (routine) without abnormal findings [Z01.419] Other Visit Diagnoses:Encounter for screening mammogram for breast cancer [Z12.31] Dense breast tissue [R92.30] Order(s):[facility] SCREENING W [facility]QUAN [[id number]] Order #: [id number] FUTURE Prescriptions as of 05/02/2024 - triamcinolone acetonide (KENALOG) 0.1 % cream Apply to affected area three times daily. - levonorgestrel (MIRENA) 21 mcg/24 hours (8 yrs) 52 mg IUD 1 Each by INTRAUTERINE route continuous. LOT # [id number] EXP 04/20/2019 Neva Lynch Ma - chlorthalidone 25 mg tablet Take 25 mg by mouth once daily. - metoprolol succinate(TOPROL XL 100 MG 24 HR TAB) Take one(1) tablet daily. Problem List As Of Date 05/02/2024 Noted Resolved HEMORRHOIDS EXTERNAL BLEEDING [K64.4] 11/22 (more content not included)... Normal [facility] CBC W/Diff, Automatedon 06-0 Absolute Lymph 2.55 X10 3/uL Normal 0.83-4.51 [facility] Comment on above: Order Comment: Order Date: 04/27/24 Order Info: 0184- - CBCD Performed By: #### L 506.1000, L501.9985, L500.4100, L501.5200, L100.0100, L503.0105, L501.9520, L506.0400, L500.4050 #### [facility] [address] [place], [place], [phone] Absolute Neut 3.0 X10 3/uL Normal 2.0-7.7 [facility] Comment on above: Order Comment: Order Date: 04/27/24 Order Info: 0184- - CBCD Performed By: #### L 506.1000, L501.9985, L500.4100, L501.5200, L100.0100, L503.0105, L501.9520, L506.0400, L500.4050 #### [facility] [address] [place], [place], [phone] (802) Basophils/100 WBC (Bld) 1.3 % High 0-1 [facility] Comment on above: Order Comment: Order Date: 04/27/24 Order Info: 0184- - CBCD Performed By: #### L 506.1000, L501.9985, L500.4100, L501.5200, L100.0100, L503.0105, L501.9520, L506.0400, L500.4050 #### [facility] [address] [place], [place], [phone] (987) Eosinophils/100 WBC (Bld) 3.3 % Normal 0-5 [facility] Comment on above: Order Comment: Order Date: 04/27/24 Order Info: 0184-1 - CBCD Performed By: #### L 506.1000, L501.9985, L500.4100, L501.5200, L100.0100, L503.0105, L501.9520, L506.0400, L500.4050 #### [facility] [address] [place], [place], [phone] (083) Erythrocyte distribution width (RBC) [Ratio] 12.4 % Normal 11.6-14.6 [facility] Comment on above: Order Comment: Order Date: 04/27/24 Order Info: 0184- - CBCD Performed By: #### L 506.1000, L501.9985, L500.4100, L501.5200, L100.0100, L503.0105, L501.9520, L506.0400, L500.4050 #### [facility] [address] [place], [place], [id number] Hematocrit (Bld) [Volume fraction] 44.5 % Normal 37-47 [facility] Comment on above: Order Comment: Order Date: 04/27/24 Order Info: 0184- - CBCD Performed By: #### L 506.1000, L501.9985, L500.4100, L501.5200, L100.0100, L503.0105, L501.9520, L506.0400, L500.4050 #### [facility] [address] [place], [place], [phone] Hemoglobin (Bld) [Mass/Vol] 15.3 g/dL High 12.0-15.0 [facility] Comment on above: Order Comment: Order Date: 04/27/24 Order Info: 0184-1 - CBCD Performed By: #### L 506.1000, L501.9985, L500.4100, L501.5200, L100.0100, L503.0105, L501.9520, L506.0400, L500.4050 #### [facility] [address] [place], [address] IG% 0.300 Normal 0.0-0.9 [facility] Comment on above: Order Comment: Order Date: 04/27/24 Order Info: 0184-1 - CBCD Result Comment: IG% - Immature Granulocytes (promyelocytes, myelocytes and metamyelocytes) > 1% indicates that a LEFT SHIFT is Present. Performed By: #### L 506.1000, L501.9985, L500.4100, L501.5200, L100.0100, L503.0105, L501.9520, L506.0400, L500.4050 #### [facility] [address] [place], [address] Lymphocytes/100 WBC (Bld) 40.2 % Normal 19-41 [facility] Comment on above: Order Comment: Order Date: 04/27/24 Order Info: 0184-1 - CBCD Performed By: #### L 506.1000, L501.9985, L500.4100, L501.5200, L100.0100, L503.0105, L501.9520, L506.0400, L500.4050 #### [facility] [address] [place], [address] MCH (RBC) [Entitic mass] 30.1 pg Normal 27.0-32.0 [facility] Comment on above: Order Comment: Order Date: 04/27/24 Order Info: 0184-1 - CBCD Performed By: #### L 506.1000, L501.9985, L500.4100, L501.5200, L100.0100, L503.0105, L501.9520, L506.0400, L500.4050 #### [facility] [address] [place], [address] MCHC (RBC) [Mass/Vol] 34.4 g/dL Normal 32-36 [facility] Comment on above: Order Comment: Order Date: 04/27/24 Order Info: 0184-1 - CBCD Performed By: #### L 506.1000, L501.9985, L500.4100, L501.5200, L100.0100, L503.0105, L501.9520, L506.0400, L500.4050 #### [facility] [address] [place], [address] MCV (RBC) [Entitic vol] 87.4 fL Normal 81-99 [facility] Comment on above: Order Comment: Order Date: 04/27/24 Order Info: 0184- - CBCD Performed By: #### L 506.1000, L501.9985, L500.4100, L501.5200, L100.0100, L503.0105, L501.9520, L506.0400, L500.4050 #### [facility] [address] [place], [address] Monocytes/100 WBC (Bld) 7.7 % Normal 0-10 [facility] Comment on above: Order Comment: Order Date: 04/27/24 Order Info: 0184-1 - CBCD Performed By: #### L 506.1000, L501.9985, L500.4100, L501.5200, L100.0100, L503.0105, L501.9520, L506.0400, L500.4050 #### [facility] [address] [place], [address] Neutrophils/100 WBC (Bld) 47.2 % Normal 47-70 [facility] Comment on above: Order Comment: Order Date: 04/27/24 Order Info: 0184-1 - CBCD Performed By: #### L 506.1000, L501.9985, L500.4100, L501.5200, L100.0100, L503.0105, L501.9520, L506.0400, L500.4050 #### [facility] [address] [place], [address] Nucleated RBC (Bld) [#/Vol] 0 10*3/uL Normal 0-5 [facility] Comment on above: Order Comment: Order Date: 04/27/24 Order Info: 0184-1 - CBCD Performed By: #### L 506.1000, L501.9985, L500.4100, L501.5200, L100.0100, L503.0105, L501.9520, L506.0400, L500.4050 #### [facility] [address] [place], [address] Platelet mean volume (Bld) [Entitic vol] 11.3 fL Normal 6.2-12.0 [facility] Comment on above: Order Comment: Order Date: 04/27/24 Order Info: 0184-1 - CBCD Performed By: #### L 506.1000, L501.9985, L500.4100, L501.5200, L100.0100, L503.0105, L501.9520, L506.0400, L500.4050 #### [facility] [address] [place], [address] Platelets (Bld) [#/Vol] 248 10*3/uL Normal 150-450 [facility] Comment on above: Order Comment: Order Date: 04/27/24 Order Info: 0184-1 - CBCD Performed By: #### L 506.1000, L501.9985, L500.4100, L501.5200, L100.0100, L503.0105, L501.9520, L506.0400, L500.4050 #### [facility] [address] [place], [address] RBC (Bld) [#/Vol] 5.09 10*6/uL Normal 4.2-5.4 [facility] Comment on above: Order Comment: Order Date: 04/27/24 Order Info: 0184-1 - CBCD Performed By: #### L 506.1000, L501.9985, L500.4100, L501.5200, L100.0100, L503.0105, L501.9520, L506.0400, L500.4050 #### [facility] [address] [place], [place], [id number] RDW SD 39.7 fl Normal 35.1-43.9 [facility] Comment on above: Order Comment: Order Date: 04/27/24 Order Info: 018- - CBCD Performed By: #### L 506.1000, L501.9985, L500.4100, L501.5200, L100.0100, L503.0105, L501.9520, L506.0400, L500.4050 #### [facility] [address] [place], [place], [phone] WBC (Bld) [#/Vol] 6.4 10*3/uL Normal 4.4-11.0 [facility] Comment on above: Order Comment: Order Date: 04/27/24 Order Info: 01802-20 - CBCD Performed By: #### L 506.1000, L501.9985, L500.4100, L501.5200, L100.0100, L503.0105, L501.9520, L506.0400, L500.4050 #### [facility] [address] [place], [place], [phone] Comprehensive Metabolic Prof [facility] 04-27-2024 Albumin [Mass/Vol] 3.9 g/dL Normal 3.2-5.0 [facility] Comment on above: Order Comment: Order Date: 04/27/24 Order Info: 0786-1 - CMP Order Info: 55525-2 - LIPID Order Info: 85426-3 - MG Order Info: 3016-3 - TSH Order Info: 3024-7 - T4F Performed By: #### L 506.1000, L501.9985, L500.4100, L501.5200, L100.0100, L503.0105, L501.9520, L506.0400, L500.4050 #### [facility] [address] [place], [address] Albumin/Globulin [Mass ratio] 1.1 {ratio} Normal 0.9-2.4 [facility] Comment on above: Order Comment: Order Date: 04/27/24 Order Info: 0786-1 - CMP Order Info: 77081-6 - LIPID Order Info: 92733-8 - MG Order Info: 3016-3 - TSH Order Info: 3024-7 - T4F Performed By: #### L 506.1000, L501.9985, L500.4100, L501.5200, L100.0100, L503.0105, L501.9520, L506.0400, L500.4050 #### [facility] [address] [place], [address] ALK P 99 U/L Normal 45-117 [facility] Comment on above: Order Comment: Order Date: 04/27/24 Order Info: 0786-1 - CMP Order Info: [id number] - LIPID Order Info: 79026-8 - MG Order Info: 3016-3 - TSH Order Info: 3024-7 - T4F Performed By: #### L 506.1000, L501.9985, L500.4100, L501.5200, L100.0100, L503.0105, L501.9520, L506.0400, L500.4050 #### [facility] [address] [place], [address] ALT [Catalytic activity/Vol] 143 U/L High 13-56 [facility] Comment on above: Order Comment: Order Date: 04/27/24 Order Info: 0786-1 - CMP Order Info: 86484-4 - LIPID Order Info: 05067-7 - MG Order Info: 3016-3 - TSH Order Info: 3024-7 - T4F Performed By: #### L 506.1000, L501.9985, L500.4100, L501.5200, L100.0100, L503.0105, L501.9520, L506.0400, L500.4050 #### [facility] [address] [place], [place], [phone] AST [Catalytic activity/Vol] 100 U/L High 15-37 [facility] Comment on above: Order Comment: Order Date: 04/27/24 Order Info: 0786-1 - CMP Order Info: [id number] - LIPID Order Info: 47001-9 - MG Order Info: 3016-3 - TSH Order Info: 3027 - T4F Performed By: #### L 506.1000, L501.9985, L500.4100, L501.5200, L100.0100, L503.0105, L501.9520, L506.0400, L500.4050 #### [facility] [address] [place], [place], [phone] Bilirubin [Mass/Vol] 0.60 mg/dL Normal 0.20-1.00 [facility] Comment on above: Order Comment: Order Date: 04/27/24 Order Info: 0786-1 - CMP Order Info: 07410-8 - LIPID Order Info: 78404-3 - MG Order Info: 3015-3 - TSH Order Info: 3027 - T4F Result Comment: For patients on eltrombopag therapy, use of Dimension Soper TBIL is not recommended. Performed By: #### L 506.1000, L501.9985, L500.4100, L501.5200, L100.0100, L503.0105, L501.9520, L506.0400, L500.4050 #### [facility] [address] [place], [place], [id number] BUN/CRE 21.5 RATIO High 10-20 [facility] Comment on above: Order Comment: Order Date: 04/27/24 Order Info: 0786-1 - CMP Order Info: 12746-0 - LIPID Order Info: 28735-1 - MG Order Info: 3 - TSH Order Info: 7 - T4F Performed By: #### L 506.1000, L501.9985, L500.4100, L501.5200, L100.0100, L503.0105, L501.9520, L506.0400, L500.4050 #### [facility] [address] [place], [address] CA,Total 9.7 mg/dL Normal 8.5-10.1 [facility] Comment on above: Order Comment: Order Date: 04/27/24 Order Info: 0786-1 - CMP Order Info: [id number] - LIPID Order Info: 91595-8 - MG Order Info: 3 - TSH Order Info: 7 - T4F Performed By: #### L 506.1000, L501.9985, L500.4100, L501.5200, L100.0100, L503.0105, L501.9520, L506.0400, L500.4050 #### [facility] [address] [place], [address] Chloride [Moles/Vol] 103 mmol/L Normal 98-107 [facility] Comment on above: Order Comment: Order Date: 04/27/24 Order Info: 0786-1 - CMP Order Info: 94829-6 - LIPID Order Info: 09613-5 - MG Order Info: 3 - TSH Order Info: 7 - T4F Performed By: #### L 506.1000, L501.9985, L500.4100, L501.5200, L100.0100, L503.0105, L501.9520, L506.0400, L500.4050 #### [facility] [address] [place], [address] CO2 [Moles/Vol] 28.0 mmol/L Normal 21.0-32.0 [facility] Comment on above: Order Comment: Order Date: 04/27/24 Order Info: 0786-1 - CMP Order Info: 63670-2 - LIPID Order Info: 24622-8 - MG Order Info: 3016-01 - TSH Order Info: 3024-05 - T4F Performed By: #### L 506.1000, L501.9985, L500.4100, L501.5200, L100.0100, L503.0105, L501.9520, L506.0400, L500.4050 #### [facility] [address] [place], [place], [phone] Creatinine [Mass/Vol] 0.70 mg/dL Normal 0.55-1.02 [facility] Comment on above: Order Comment: Order Date: 04/27/24 Order Info: 785-11 - CMP Order Info: - LIPID Order Info: [id number] - MG Order Info: 3016-01 - TSH Order Info: 3024-05 - T4F Result Comment: The validity of the calculated GFR GFRAA in patients over 70 years has not been determined. Clinical correlation is essential. Performed By: #### L 506.1000, L501.9985, L500.4100, L501.5200, L100.0100, L503.0105, L501.9520, L506.0400, L500.4050 #### [facility] [address] [place], [address] EST GFR - AA 109 mL/min Normal >60 [facility] Comment on above: Order Comment: Order Date: 04/27/24 Order Info: 785-11 - CMP Order Info: [id number] - LIPID Order Info: [id number] - MG Order Info: 3016-01 - TSH Order Info: 3024-05 - T4F Result Comment: Afri can [place] GFR Calc Performed By: #### L 506.1000, L501.9985, L500.4100, L501.5200, L100.0100, L503.0105, L501.9520, L506.0400, L500.4050 #### [facility] [address] [place], [address] GAP 6 Normal 5-15 [facility] Comment on above: Order Comment: Order Date: 04/27/24 Order Info: 785- - CMP Order Info: - LIPID Order Info: 70631-1 - MG Order Info: 3 - TSH Order Info: 3027 - T4F Performed By: #### L 506.1000, L501.9985, L500.4100, L501.5200, L100.0100, L503.0105, L501.9520, L506.0400, L500.4050 #### [facility] [address] [place], [address] GFR/1.73 sq M.predicted among non-blacks MDRD (S/P/Bld) [Vol rate/Area] 90 mL/min/{1.73_m2} Normal >60 [facility] Comment on above: Order Comment: Order Date: 04/27/24 Order Info: 785-11 - CMP Order Info: - LIPID Order Info: [id number] - MG Order Info: 3016-01 - TSH Order Info: 3024-05 - T4F Result Comment: Non- GFR Calc Performed By: #### L 506.1000, L501.9985, L500.4100, L501.5200, L100.0100, L503.0105, L501.9520, L506.0400, L500.4050 #### [facility] [address] [place], [address] Globulin (S) [Mass/Vol] 3.4 g/dL Normal 2.2-4.2 [facility] Comment on above: Order Comment: Order Date: 04/27/24 Order Info: 785-11 - CMP Order Info: [id number] - LIPID Order Info: 09728-7 - MG Order Info: 3 - TSH Order Info: 30247 - T4F Performed By: #### L 506.1000, L501.9985, L500.4100, L501.5200, L100.0100, L503.0105, L501.9520, L506.0400, L500.4050 #### [facility] [address] [place], [address] Glucose [Mass/Vol] 94 mg/dL Normal 74-106 [facility] Comment on above: Order Comment: Order Date: 04/27/24 Order Info: 86-1 - CMP Order Info: [id number] - LIPID Order Info: [id number] - MG Order Info: 3016-3 - TSH Order Info: 3024-7 - T4F Performed By: #### L 506.1000, L501.9985, L500.4100, L501.5200, L100.0100, L503.0105, L501.9520, L506.0400, L500.4050 #### [facility] [address] [place], [address] Potassium [Moles/Vol] 3.4 mmol/L Low 3.5-5.1 [facility] Comment on above: Order Comment: Order Date: 04/27/24 Order Info: 785-1 - CMP Order Info: [id number] - LIPID Order Info: 67390-5 - MG Order Info: 3016-3 - TSH Order Info: 3024-7 - T4F Performed By: #### L 506.1000, L501.9985, L500.4100, L501.5200, L100.0100, L503.0105, L501.9520, L506.0400, L500.4050 #### [facility] [address] [place], [address] Sodium [Moles/Vol] 137 mmol/L Normal 136-145 [facility] Comment on above: Order Comment: Order Date: 04/27/24 Order Info: 0786-1 - CMP Order Info: [id number] - LIPID Order Info: 90475-3 - MG Order Info: 3016-3 - TSH Order Info: 3024-7 - T4F Performed By: #### L 506.1000, L501.9985, L500.4100, L501.5200, L100.0100, L503.0105, L501.9520, L506.0400, L500.4050 #### [facility] [address] [place], [place], [address] T PROT 7.3 g/dL Normal 6.4-8.2 [facility] Comment on above: Order Comment: Order Date: 04/27/24 Order Info: 0786-1 - CMP Order Info: [id number] - LIPID Order Info: 78424-6 - MG Order Info: 3016-3 - TSH Order Info: 3024-7 - T4F Performed By: #### L 506.1000, L501.9985, L500.4100, L501.5200, L100.0100, L503.0105, L501.9520, L506.0400, L500.4050 #### [facility] [address] [place], [address] Urea nitrogen [Mass/Vol] 15 mg/dL Normal 7-18 [facility] Comment on above: Order Comment: Order Date: 04/27/24 Order Info: 0786-1 - CMP Order Info: [id number] - LIPID Order Info: 08203-1 - MG Order Info: 3016-3 - TSH Order Info: 3024-7 - T4F Performed By: #### L 506.1000, L501.9985, L500.4100, L501.5200, L100.0100, L503.0105, L501.9520, L506.0400, L500.4050 #### [facility] [address] [place], [place], [id number] Hemoglobin A1con 04-27-2024 HbA1c (Bld) [Mass fraction] 5.3 % Normal 3.8-5.6 [facility] Comment on above: Order Comment: Order Date: 04/27/24 Order Info: 4548-4 - A1C Result Comment: Norm al < 5.7 % Prediabetic 5.7 - 6.4 % Diabetic >or= 6.5 % Please note range changes. Performed By: #### L 506.1000, L501.9985, L500.4100, L501.5200, L100.0100, L503.0105, L501.9520, L506.0400, L500.4050 #### [facility] [address] [place], [address] Lipid Profileon 04-27-2024 Cholesterol [Mass/Vol] 216 mg/dL High 200 [facility] Comment on above: Order Comment: Order Date: 04/27/24 Order Info: 0786-1 - CMP Order Info: 75828-7 - LIPID Order Info: [id number] - MG Order Info: 3015-3 - TSH Order Info: 7 - T4F Result Comment: <200 mg/dL Desirable 200-240 mg/dL Borderline >240 mg/dL High Risk Performed By: #### L 506.1000, L501.9985, L500.4100, L501.5200, L100.0100, L503.0105, L501.9520, L506.0400, L500.4050 #### [facility] [address] [place], [address] Cholesterol in HDL [Mass/Vol] 50 mg/dL Normal [facility] Comment on above: Order Comment: Order Date: 04/27/24 Order Info: 0786-1 - CMP Order Info: [id number] - LIPID Order Info: [id number] - MG Order Info: 3 - TSH Order Info: 7 - T4F Result Comment: The drugs N-Acetylcysteine and Metamizole may falsely depress this assay. Reference Range HDL <40 mg/dL Low HDL Cholesterol HDL >or= 60 mg/dL High HDL Cholesterol Performed By: #### L 506.1000, L501.9985, L500.4100, L501.5200, L100.0100, L503.0105, L501.9520, L506.0400, L500.4050 #### [facility] [address] [place], [place], [id number] Cholesterol in LDL [Mass/Vol] 131 mg/dL High 0-130 [facility] Comment on above: Order Comment: Order Date: 04/27/24 Order Info: 0786-1 - CMP Order Info: 60941-1 - LIPID Order Info: [id number] - MG Order Info: 3016-3 - TSH Order Info: 302-7 - T4F Performed By: #### L 506.1000, L501.9985, L500.4100, L501.5200, L100.0100, L503.0105, L501.9520, L506.0400, L500.4050 #### [facility] [address] [place], [place], [phone] (271) Cholesterol in VLDL [Mass/Vol] 35 mg/dL Normal 5-40 [facility] Comment on above: Order Comment: Order Date: 04/27/24 Order Info: 785-1 - CMP Order Info: 06445-5 - LIPID Order Info: [id number] - MG Order Info: 3 - TSH Order Info: 7 - T4F Performed By: #### L 506.1000, L501.9985, L500.4100, L501.5200, L100.0100, L503.0105, L501.9520, L506.0400, L500.4050 #### [facility] [address] [place], [place], [id number] [phone]) Triglyceride [Mass/Vol] 175 mg/dL Normal W [facility] Comment on above: Order Comment: Order Date: 04/27/24 Order Info: 0786-1 - CMP Order Info: [id number] - LIPID Order Info: [id number] - MG Order Info: 3016-3 - TSH Order Info: 302-7 - T4F Result Comment: The drugs N-Acetylcysteine and Metamizole may falsely depress this assay. Serum Triglycerides Reference Interval Normal <150 mg/dL Borderline high 150 - 199 mg/dL High 200 - 499 mg/dL Very High > or = 500 mg/dL Performed By: #### L 506.1000, L501.9985, L500.4100, L501.5200, L100.0100, L503.0105, L501.9520, L506.0400, L500.4050 #### [facility] [address] [place], [address] Magnesiumon 04-27-2024 Magnesium [Mass/Vol] 2.5 mg/dL Normal 1.6-2.6 [facility] Comment on above: Order Comment: Order Date: 04/27/24 Order Info: [id number] - CMP Order Info: [id number] - LIPID Order Info: [id number] - MG Order Info: 3 - TSH Order Info: 7 - T4F Performed By: #### L 506.1000, L501.9985, L500.4100, L501.5200, L100.0100, L503.0105, L501.9520, L506.0400, L500.4050 #### [facility] [address] [place], [address] T4 Free Directon 04-27-2024 T4 FREE DIRECT 0.89 ng/dL Normal 0.76-1.46 [facility] Comment on above: Order Comment: CLEAN CATCH Performed By: #### L 400.0001 #### [facility] [address] [place], [address] Thyroid Stim Hormone (TSH)on 04-27-2024 TSH 8.03 uIU/mL High 0.358-3.74 [facility] Comment on above: Order Comment: Order Date: 04/27/24 Order Info: [id number] - CMP Order Info: [id number] - LIPID Order Info: [id number] - MG Order Info: [id number] - TSH Order Info: [id number] - T4F Performed By: #### L 506.1000, [id number], L500.4100, L501.5200, L100.0100, L503.0105, L501.9520, L506.0400, L500.4050 #### [facility] [address] [place], [address] Urinalysis, Completeon 04-27 BACTERIA 0 SEEN Normal None Seen [facility] Comment on above: Order Comment: CLEAN CATCH Performed By: #### L 400.0001 #### [facility] [address] [place], [address] EPI,SQUAMOUS 0 SEEN Normal 5-10 [facility] Comment on above: Order Comment: CLEAN CATCH Performed By: #### L 400.0001 #### [facility] [address] [place], [address] Mucus Ql (Urine sed) 0 SEEN Normal [facility] Comment on above: Order Comment: CLEAN CATCH Performed By: #### L 400.0001 #### [facility] [address] [place], [address] RBC 0 SEEN Normal 0-5 [facility] Comment on above: Order Comment: CLEAN CATCH Performed By: #### L 400.0001 #### [facility] [address] [place], [address] WBC 0 SEEN Normal 0-5 [facility] Comment on above: Order Comment: CLEAN CATCH Performed By: #### L 400.0001 #### [facility] [address] [place], [address] Vitamin B12on 04-27-2024 Cobalamin (Vitamin B12) [Mass/Vol] 489 pg/mL Normal 211-911 [facility] Comment on above: Order Comment: Order Date: 04/27/24 Order Info: [id number] - B12 Order Info: [id number] - VITD25 Performed By: #### L 506.1000, [id number], L500.4100, L501.5200, L100.0100, L503.0105, L501.9520, L506.0400, L500.4050 #### [facility] [address] [place], [address] Vitamin D,25 Hydroxyon 04-27 Vitamin D 25-OH 32.6 ng/mL Normal [facility] Comment on above: Order Comment: Order Date: 04/27/24 Order Info: [id number] - B12 Order Info: [id number] - VITD25 Result Comment: Azalea min D 25(OH) Status Range Deficiency <20 ng/mL (50nmol/L) Insufficiency 20 - 30 ng/mL (50 - 75 nmol/L) Sufficiency 30 - 100 ng/mL (75 - 250 nmol/L) Toxicity >100 ng/mL (>250 nmol/L) Performed By: #### L 506.1000, [id number], L500.4100, L501.5200, L100.0100, L503.0105, L501.9520, L506.0400, L500.4050 #### [facility] [address] [place], [place], [address] MATILDA SCREENING [facility] 10-20 [facility] No Panel InformationOrdered By: Chanel Edwards on 04-15-2023 Hepatitis A IgM Antibody Negative Negative [facility] Hepatitis B Core IgM Antibody Negative Negative [facility] Hepatitis C Antibody (EIA) Non-Reactive Non Reactive [facility] Hepatitis C Antibody Comment Comment . [facility] Comment on above: Not infected with HC V unless early or acute infection issuspected (which may be delayed in an immunocompromisedindividual), or other evidence exists to indicate HCVinfection.Performed at: [address] [id number] Director: Rm Floyd PhD, Phone: [phone] Serum or plasma hepatitis B virus surface antigen detection by immunoassayOrdered By: Chanel Edwards on 04-15-2023 HBV surface Ag IA Ql Negative Negative [facility] Basophil percentageOrdered B y: Dr. Carlson on 03-11-2023 Bilirubin [Mass/Vol] 0.70 mg/dL 0.20-1.00 [facility] Comment on above: For patients on eltr ombopag therapy, use of Dimension Soper TBIL is not recommended. Chloride [Moles/Vol] 102 mmol/L 98-107 [facility] Cholesterol [Mass/Vol] 211 mg/dL <200 [facility] Comment on above: <200 mg/dL Desirable 200-240 mg/dL Borderline >240 mg/dL High Risk Glucose [Mass/Vol] 127 mg/dL 74-106 [facility] Comment on above: Fasting Glucose resu lt greater than or equal to 126 mg/dL suggests DIABETES MELLITUS per A.D.A. criteria. Potassium [Moles/Vol] 3.5 mmol/L 3.5-5.1 [facility] Protein [Mass/Vol] 6.9 g/dL 6.4-8.2 [facility] Sodium [Moles/Vol] 136 mmol/L 136-145 [facility] Triglyceride [Mass/Vol] 132 mg/dL <199 [facility] Comment on above: The drugs N-Acetylcy steine and Metamizole may falsely depress this assay.Serum Triglycerides Reference Interval Normal <150 mg/dL Borderline high 150 - 199 mg/dL High 200 - 499 mg/dL Very High > or = 500 mg/dL Laboratory - Chemistry and C hemistry - challengeOrdered By: Dr. Carlson on 03-11-2023 ALP [Catalytic activity/Vol] 94 U/L 45-117 [facility] ALT [Catalytic activity/Vol] 150 U/L 13-56 [facility] CO2 [Moles/Vol] 27.0 mmol/L 21.0-32.0 [facility] Globulin (S) [Mass/Vol] 3.2 g/dL 2.2-4.2 [facility] Urea nitrogen/Creatinine [Mass ratio] 21.3 mg/mg 10-20 [facility] No Panel InformationOrdered By: Dr. Carlson on 03-11-2023 Estimated GFR (MDRD) Amer 88 mL/min >60 [facility] Comment on above: GFR Calc Estimated GFR (MDRD) Non-Af Amer 73 mL/min >60 [facility] Comment on above: Non- GFR Calc Serum or plasma albumin yanet urement (mass/volume)Ordered By: Dr. Carlson on 03-11-2023 Albumin [Mass/Vol] 3.7 g/dL 3.2-5.0 [facility] Serum or plasma albumin/glob ulin mass ratioOrdered By: Dr. Carlson on 03-11-2023 Albumin/Globulin [Mass ratio] 1.2 {ratio} 0.9-2.4 [facility] Serum or plasma calcium yanet urement (mass/volume)Ordered By: Dr. Carlson on 03-11-2023 Calcium [Mass/Vol] 9.1 mg/dL 8.5-10.1 [facility] Serum or plasma cholesterol in HDL measurement (mass/volume)Ordered By: Dr. Carlson on 03-11-2023 Cholesterol in HDL [Mass/Vol] 50 mg/dL >40 [facility] Comment on above: The drugs N-Acetylcy steine and Metamizole may falsely depress this assay. Reference Range HDL <40 mg/dL Low HDL Cholesterol HDL >or= 60 mg/dL High HDL Cholesterol Serum or plasma cholesterol in VLDL measurement (mass/volume)Ordered By: Dr. Carlson on 03-11-2023 Cholesterol in VLDL [Mass/Vol] 26 mg/dL 5-40 [facility] Serum or plasma creatinine m easurement (mass/volume)Ordered By: Dr. Carlson on 03-11-2023 Creatinine [Mass/Vol] 0.84 mg/dL 0.55-1.02 [facility] Comment on above: The validity of the calculated GFR & GFRAA in patients over 70 years has not been determined. Clinical correlation is essential. Serum or plasma low density lipoprotein (LDL) cholesterol measurement (mass/volume)Ordered By: Dr. Carlson on 03-11-2023 Cholesterol in LDL [Mass/Vol] 135 mg/dL 0-130 [facility] Serum or plasma urea nitroge n measurement (mass/volume)Ordered By: Dr. Carlson on 03-11-2023 Urea nitrogen [Mass/Vol] 18 mg/dL 7-18 [facility] Thin prep Papanicolaou smear with manual screeningOrdered By: Dr. Carlson on 03-11-2023 Thin prep Papanicolaou smear with manual screening 115 U/L 15-37 [facility] Thin prep Papanicolaou smear with manual screening 7 5-15 [facility] Vital Signs Date Time Vital Sign Value Performing Clinician Angelo orozco 05-02-2024 08:31-0400 Body height 160 cm Penelope Frank MD Work Phone: [facility] 05-02-2024 08:31-0400 Body mass index (BMI) [Ratio] 43.08 kg/m2 Penelope Frank MD Work Phone: [facility] 05-02-2024 08:31-0400 Body weight 110.31 kg Penelope Frank MD Work Phone: [facility] 05-02-2024 08:31-0400 Diastolic blood pressure 82 mm[Hg] Penelope Frank MD Work Phone: [facility] 05-02-2024 08:31-0400 Systolic blood pressure 130 mm[Hg] Penelope Frank MD Work Phone: [facility] 05-28-2023 10:29-0400 Diastolic blood pressure 60 mm[Hg] Dr. Tomas Carlson Work Phone: [facility] 05-28-2023 10:29-0400 Heart rate 56 /min Dr. Tomas Carlson Work Phone: [facility] 05-28-2023 10:29-0400 Respiratory rate 16 /min Dr. Tomas Carlson Work Phone: [facility] 05-28-2023 10:29-0400 SaO2% (BldA) [Mass fraction] 96 % Dr. Tomas Carlson Work Phone: [facility] 05-28-2023 10:29-0400 Systolic blood pressure 133 mm[Hg] Dr. Tomas Carlson Work Phone: [facility] 05-28-2023 10:13-0400 Body temperature 98.3 [degF] Dr. Tomas Carlson Work Phone: [facility] 05-28-2023 09:33-0400 Body height 160.[address] Tomas Carlson Work Phone: [facility] 05-28-2023 09:33-0400 Body mass index (BMI) [Ratio] 44.8 kg/m2 Dr. Tomas Carlson Work Phone: [facility] 05-28-2023 09:33-0400 Body weight 114.[address] Tomas Carlson Work Phone: [facility] 03-22-2023 15:11-0400 Body mass index (BMI) [Ratio] 45.2 kg/m2 Dr. Tomas Carlson Work Phone: [facility] 03-22-2023 15:11-0400 Body temperature 98 [degF] Dr. Tomas Carlson Work Phone: [facility] 03-22-2023 15:11-0400 Body weight 115.[address] Tomas Carlson Work Phone: [facility] 03-22-2023 15:11-0400 Diastolic blood pressure 78 mm[Hg] Dr. Tomas Carlson Work Phone: [facility] 03-22-2023 15:11-0400 Heart rate 95 /min Dr. Tomas Carlson Work Phone: [facility] 03-22-2023 15:11-0400 Respiratory rate 18 /min Dr. Tomas Carlson Work Phone: [facility] 03-22-2023 15:11-0400 SaO2% (BldA) [Mass fraction] 96 % Dr. Tomas Cralson Work Phone: [facility] 03-22-2023 15:11-0400 Systolic blood pressure 140 mm[Hg] Dr. Tomas Carlson Work Phone: [facility] 03-11-2023 09:14-0400 Body height 160.7 cm Kat Koehler MD Work Phone: [facility] 03-11-2023 09:14-0400 Body weight 114.31 kg Kat Koehler MD Work Phone: [facility] 03-11-2023 09:14-0400 Diastolic blood pressure 84 mm[Hg] Kat Koehler MD Work Phone: [facility] 03-11-2023 09:140400 Systolic blood pressure 128 mm[Hg] Kat Koehler MD Work Phone: [facility] Encounters Encounter Date Encounter Type Care Provider Facility Start: 04-26-2025 ambulatory Seanayesha Vignesh Facility:[facility] Start: 10-23-2024 End: 10-23-2024 ambulatory PENELOPE FRANK Facility:[facility] Start: 10-23-2024 End: 10-23-2024 Subsequent hospital visit by physician Screen Mammo [facility] Mammogram Comment on above: Encounter for screen ing mammogram for breast cancer [Z12.31] Start: 09-29-2024 End: 09-29-2024 ambulatory Tommy Christian Facility:[facility] Start: 05-05-2024 End: 05-05-2024 ambulatory [facility] Facility:[facility] Start: 05-02-2024 End: 05-02-2024 ambulatory PENELOPE FRANK Facility:[facility] Start: 05-02-2024 End: 05-02-2024 Patient encounter status Penelope Frank MD Work Phone: [facility] Start: 05-02-2024 End: 05-02-2024 Periodic preventive med est patient 40-64yrs Penelope Frank MD Work Phone: OB/Gynecology Comment on above: Encounter for gyneco logical examination (general) (routine) without abnormal findings (Primary Dx); Encounter for screening mammogram for breast cancer; Dense breast tissue Start: 04-27-2024 End: 04-27-2024 ambulatory Tommy Christian Facility:[facility] Start: 10-20-2023 End: 10-20-2023 Patient encounter status [facility] Start: 10-20-2023 End: 10-20-2023 Subsequent hospital visit by physician Screen Mammo [facility] Mammogram Comment on above: Encounter for gyneco logical examination (general) (routine) without abnormal findings [Z01.419] Start: 05-28-2023 Non-patient / Non-visit Dr. Salvador Carlson Work Phone: [facility] Start: 05-28-2023 End: 05-28-2023 Admission to same day surgery center Dr. Tomas Carlson Work Phone: [facility] Work Phone: Start: 04-15-2023 End: 04-15-[address] Tomas Carlson Work Phone: [facility] Work Phone: Start: 04-15-2023 End: 04-15-[address] Tomas Carlson Work Phone: [facility] Start: 03-22-2023 End: 03-22-[address] Tomas Carlson Work Phone: [facility] Work Phone: Start: 03-11-2023 End: 03-11-2023 Patient encounter status Kat Koehler MD Work Phone: OB/Gynecology Start: 03-11-2023 End: 03-11-2023 ambulatory [facility] Work Phone: Start: 03-11-2023 End: 03-11-2023 Patient encounter procedure Kat Koehler MD Work Phone: OB/Gynecology Comment on above: Encounter for gyneco logical examination (general) (routine) without abnormal findings (Primary Dx); Encounter for screening for human papillomavirus (HPV); Pap smear for cervical cancer screening; Encounter for screening mammogram for breast cancer; Blood in stool Procedures Date Procedure Procedure Detail Performing Clinician Start: 10-20-2023 Screening digital br [facility] Kat Koehler MD Work Phone: Start: 03-21-2020 Mammography Kat stark MD Work Phone: Start: 09-23-2007 Lipid 1996 panel - S gela or Plasma Screen Wstr Plan of Treatment Date Care Activity Detail Author Start: 07-30-2030 Urine microalbumin profile DTaP,Tdap,Td Vaccine (2 - Td or Tdap) [facility] Start: 03-11-2028 HPV Testing HPV Testing [facility] Start: 03-11-2028 Pap Testing Pap Testing [facility] Start: 03-11-2028 Screening for malign ant neoplasm of cervix Cervical Cancer Screening [facility] Start: 06-11-2025 End: 06-11-2025 Patient encounter procedure 06/11/2025 2:20 PM EDT Office Visit OB/Gynecology [address] [place] [address] Kat Koehler MD [address] [place], [place] [id number] Annual OB/Gynecology Comment on above: Annual Start: 05-03-2025 End: 05-03-2025 Patient encounter procedure 05/03/2025 8:40 AM EDT Office Visit OB/Gynecology [address] [place] [address] Kat Koehler MD [address] [place] [address] Annual OB/Gynecology Comment on above: Annual Start: 10-23-2024 End: 10-23-2024 Patient encounter procedure 10/23/2024 7:50 AM EST Appointment Mammogram [address] [place] [address] Encounter for screening mammogram for breast cancer [Z12.31]; Dense breast tissue [R92.30] Mammogram Comment on above: Encounter for screen ing mammogram for breast cancer [Z12.31]; Dense breast tissue [R92.30] Start: 10-20-2024 Mammography Mammogram Screening [facility] Start: 10-20-2024 Screening for malign ant neoplasm of breast Mammogram Screening [facility] Start: 07-23-2024 Covid-19 Vaccine ( season) Covid-19 Vaccine () [facility] Start: 07-23-2024 Influenza vaccination [facility] Start: 11-22-2023 Behavioral Health Screening Behavioral Health Screening [facility] Start: 07-23-2023 Covid-19 Vaccine ( season) Covid-19 Vaccine () [facility] Start: 07-23-2023 Influenza vaccination C [facility] Start: 05-28-2023 Colonoscopy flx dx w/collj spec when pfrmd DIAGNOSTIC COLONOSCOPY [facility] Start: 05-28-2023 Patient discharge [facility] Start: 11-30-2022 HPV TESTING HPV TESTING [facility] Start: 11-30-2022 PAP TESTING PAP TESTING [facility] Start: 11-22-2022 DEPRESSION ASSESSMENT DEPRESSION ASS ESSMENT [facility] Start: 2021 RSV Vaccine (1 - 1-d ose 60+ series) RSV Vaccine (1 - 1-dose 60+ series) [facility] Start: 2021 RSV Vaccine (1 - Ris k 60-74 years 1-dose series) RSV Vaccine (1 - Risk 60-74 years 1-dose series) [facility] Start: 03-21-[address] [facility] Start: 11-30-2019 DIABETES SCREEN DIABETES SCREEN [facility] Start: 11-30-2019 Diabetes Screening Diabetes Screenin g [facility] Start: 09-23-2012 Lipid 1996 panel - Serum or Plasma Lipid Screening [facility] Start: 09-23-2012 Lipid panel Lipid Screening [facility] Start: 09-23-2012 L[address] S[address]EN LIPID SCREEN [facility] Start: 2011 SHINGRIX VACCINE (1 of 2) SHINGRIX VACCINE (1 of 2) [facility] Start: 2006 COLOGUARD (FIT-DNA) COLOGUARD (FIT-D NA) [facility] Start: [address] [facility] Start: 2006 COLORECTAL CANCER SCREENING COLORECTAL CANCER SCREENING [facility] Start: [address] COLONOGRAPHY [facility] Start: 2006 FECAL OCCULT BLOOD FECAL OCCULT BLOO D [facility] Start: 2006 Screening for malign ant neoplasm of colon [facility] Start: 2006 SIGMOIDOSCOPY SIGMOIDOSCOPY [facility] Start: 1980 Urine microalbumin profile DTAP,TDAP,TD (1 - Tdap) [facility] Start: 1979 Anxiety Screening Anxiety Screening [facility] Start: 1979 Depression Screening Depression Scre ening [facility] Start: 1979 HEPATITIS C SCREENING HEPATITIS C [facility] Start: 1979 Hepatitis C screening Hepatitis C [facility] Start: 1979 HIV SCREENING HIV SCREENING [facility] Start: 1979 HIV screening HIV Screening [facility] End: 06-01-2025 DBT Breast - bilateral screening MATILDA SCREENING [facility] Routine Encounter for screening mammogram for breast cancer Dense breast tissue 1 Occurrences starting 05/02/2024 until 06/01/2025 [facility] Work Phone: Comment on above: 1 Occurrences starti ng 05/02/2024 until 06/01/2025 DBT Breast - bilater al screening MATILDA SCREENING [facility]iology Routine Encounter for screening mammogram for breast cancer Dense breast tissue 10/23/2024 8:44 AM EST [facility] Work Phone: End: 04-09-2024 MATILDA SCREENING [facility] MATILDA SCREENING [facility] Routine Encounter for gynecological examination (general) (routine) without abnormal findings Encounter for screening mammogram for breast cancer 1 Occurrences starting 03/11/2023 until 04/09/2024 [facility] Work Phone: Comment on above: 1 Occurrences starti ng 03/11/2023 until 04/09/2024 PAP TEST PAP TEST Lab [facility] Encounter for gynecological examination (general) (routine) without abnormal findings Encounter for screening for human papillomavirus (HPV) Pap smear for cervical cancer screening 03/11/2023 10:11 AM EDT [facility] Work Phone: Patient referral [facility] Work Phone: Immunizations Immunization Date Immunization Notes Care Provider Adam carpenter 02-06-2021 COVID-19 original vaccine, age 12+ yr, monovalent (PFIZER-BIONTECH - PURPLE TOP) Kat Koehler MD Work Phone: [facility] 01-16-2021 COVID-19 original vaccine, age 12+ yr, monovalent (PFIZER-BIONTECH - PURPLE TOP) Kat Koehler MD Work Phone: [facility] Payers Date Payer Category Payer Self-pay [id number] 2019 Unknown MMO MMO [employer] PPO [id number] 2019-Present [phone] [address] [place] [address] PPO [id number] 2019 Unknown [id number] Unknown [employer] [id number] Unknown [id number] Unknown [id number] Unknown [id number] Unknown [id number] Social History Date Type Detail Facility Start: 03-11-2023 Tobacco smoking status NHIS Never smoked tobacco [facility] Start: 03-11-2023 Tobacco use and exposure Smokeless tobacco non-user [facility] Start: 03-11-2023 End: 05-02-2024 Alcohol intake Current drinker of alcohol (finding) [facility] Start: 05-10-2017 [facility] Start: 1960 Sex Assigned At Not on file [facility] Start: 12-03-2021 End: 05-26-2023 Tobacco smoking status NHIS Unknown if ever smoked [facility] Start: 1960 Sex Assigned At Female [facility] Start: 03-11-2023 End: 10-20-2023 History of Social function [facility] Start: 03-11-2023 End: 10-20-[address] [facility] National Score (1-100), lower number is lower risk 73 [facility] Start: 05-02-2024 Alcohol Comment occassional 3- 4x per year [facility] NEGATED: Highlighted row [facility] Goals Date Patient Goal Desired Activity /State Mental Status Date Assessment Result Facility 05-28-2023 Cognitive function Voice/Name [facility] Work Phone: Clinical Notes 03-11-2023 to 10-23-2024 Minerva Sánchez Mammo Tech - 10/23/2024 7:50 AM Penelope Wharton MD - 05/02/2024 8:28 AM Celestina Henderson Mammo Arjun - 10/20/2023 7:10 AM Emy Koehler MD - 03/11/2023 9:08 AM EDT Note Date & Type Note Facility 10-23-2024 History of Present illness Narrative Radiology Service Progress Note PATIENT NAME: Marie Jon DATE OF SERVICE: October 23, 2024 TIME: 8:44 AM PATIENT IDENTITY VERIFICATION COMPLETED USING TWO (2) IDENTIFIERS: Name and Date of confirmed by patient verbally. FALL SCREENING: Has the patient had 2 falls in the last year or 1 fall with injury or currently using an Ambulatory Assistive Device (Walker, Cane, Wheelchair, Crutches, etc.)? No PATIENT GENDER DATA: Female. status: : No status: NO. PATIENT RELEVANT IMPLANT DATA REVIEWED: Not Applicable PATIENT PRESENTS WITH AN IMPLANTABLE OR ATTACHED BUS ESCORT: No RADIOLOGY DEPARTMENT: Mammography PERIPHERAL IV DATA: Not applicable SIGNED BY: Cuong Johnsono Arjun October 23, 2024 8:44 AM documented in this encounter [facility] 10-23-2024 Note HNO ID: [id number] Author: MINERVA SÁNCHEZ Mammo Tech Service: ? Author Type: Medical Auditor Type: Progress Notes Filed: 10/23/2024 08:44 Note Text: Radiology Service Progress Note PATIENT NAME: Marie Jon DATE OF SERVICE: October 23, 2024 TIME: 8:44 AM PATIENT IDENTITY VERIFICATION COMPLETED USING TWO (2) IDENTIFIERS: Name and Date of confirmed by patient verbally. FALL SCREENING: Has the patient had 2 falls in the last year or 1 fall with injury or currently using an Ambulatory Assistive Device (Walker, Cane, Wheelchair, Crutches, etc.)? No PATIENT GENDER DATA: Female. status: : No status: NO. PATIENT RELEVANT IMPLANT DATA REVIEWED: Not Applicable PATIENT PRESENTS WITH AN IMPLANTABLE OR ATTACHED BUS ESCORT: No RADIOLOGY DEPARTMENT: Mammography PERIPHERAL IV DATA: Not applicable SIGNED BY: Minerva Sánchez [employer] October 23, 2024 8:44 AM [facility] 05-02-2024 Note HNO ID: [id number] Author: PENELOPE FRANK MD Service: ? Author Type: Physician Type: Progress Notes Filed: 05/02/2024 09:11 Note Text: Marie is a 63 year old who presents for an annual gynecologic exam without complaints. Postmenopausal: Yes since age 56 HRT use: No. Last Pap: 03/18/2023 normal HPV: 03/15/2023 negative History of abnormal pap: No Last mammogram: 2022 normal History of abnormal mammogram: No Sexually active: Yes OB History T0 L3 SAB0 IAB0 Ectopic0 Multiple0 Live Births0 Contract Attorney History LMP: 02/21/2018 (Within Weeks), Postmenopausal Age at Menarche: Age at First : Age at Menopause: Contract Attorney History Comments: Sexual Activity: Yes; Male Contraception: Vasectomy PAST MEDICAL HISTORY Diagnosis Date Chronic depressive personality disorder Diverticulosis of colon (without mention of hemorrhage) Diverticulosis Fibrocystic breast left Hemorrhage of rectum and anus Incisional hernia without mention of obstruction or gangrene Obesity, unspecified Unspecified hemorrhoids without mention of complication Hemorrhoids PAST SURGICAL HISTORY Procedure Laterality Date APPENDECTOMY DELIVERY ONLY x2 , low cervical ENDOMETRIAL BX W/WO ENDOCERVIX BX W/O DILAT SPX 11/25/2007, 12/03/2009 EXCISION SINGLE EXTERNAL PAPILLA OR TAG ANUS 12/30/05 Excision of hemorrhoidal tag INSERTION OF IUD 10/22/2016 REPAIR FIRST ABDOMINAL WALL HERNIA RPR RECRT INCAL/VNT HERNIA REDUCIBLE 07/24 TONSILLECTOMY PRIMARY/SECONDARY Tonsillectomy FAMILY HISTORY Problem Relation Age of Onset Breast Cancer Mother developed at 67 Diabetes Father Hypertension Father Diabetes Paternal Aunt Diabetes Paternal Uncle Diabetes Paternal Uncle Diabetes Paternal Grandmother SOCIAL HISTORY Social History Tobacco Use Smoking status: Never Smokeless tobacco: Never Vaping Use Vaping Use: Never used Substance Use Topics Alcohol use: Yes Comment: occassional 3-4x per year Drug use: No REVIEW OF SYSTEMS Abdomen: No abdominal pain, nausea, vomiting, diarrhea, or constipation. No bloating, early satiety, indigestion, or increased flatulence. Bladder: No dysuria, gross hematuria, urinary frequency, urinary urgency, or incontinence Breast: No breast lumps, nipple d/c, overlying skin changes, redness or skin retraction Allergies and current medication updated:Yes EXAM: BP 130/82 Ht 5' 3 (1.60m) Wt 243 lb 3.2 oz (110.3kg) LMP 02/21/2018 BMI 43.09 kg/(m2). GENERAL: pleasant, female in no apparent distress HEENT: Normocephalic, atraumatic, mucus membranes moist, and no lesions NECK: Supple, full range of motion, no adenopathy, and thyroid normal DERMATOLOGY: Normal, without lesions, non-icteric, and non-hirsute BREAST: soft, non-tender, symmetric, no dominant mass, normal nipple-areolar complex, no lymphadenopathy, and no nipple discharge CHEST: Normal inspiratory effort ABDOMEN: soft, non-tender, and no masses PELVIC: external genitalia normal, normal Bartholin's glands, urethra, Kulpmont's glands, no vulvar lesions, no cervical lesions, good vaginal support, physiologic discharge present, normal appearing perineal body and perianal region BIMANUAL: uterus normal size, shape and consistency, no adnexal masses, and non-tender RECTOVAGINAL: small hemorrhoid on anus NEURO: alert and oriented x3,exam grossly non-focal EXTREMITIES: normal ASSESSMENT/PLAN: 1) Health maintenance: Pap/HPV up to date. Mammogram up to date 2) Follow up one year or sooner as needed Penelope Frank MD [facility] 05-02-2024 History of Present illness Narrative Marie is a 63 year old who presents for an annual gynecologic exam without complaints. Postmenopausal: Yes since age 56 HRT use: No. Last Pap: 03/18/2023 normal HPV: 03/15/2023 negative History of abnormal pap: No Last mammogram: 2022 normal History of abnormal mammogram: No Sexually active: Yes OB History T0 L3 SAB0 IAB0 Ectopic0 Multiple0 Live Births0 Contract Attorney History LMP: 02/21/2018 (Within Weeks), Postmenopausal Age at Menarche: Age at First : Age at Menopause: Contract Attorney History Comments: Sexual Activity: Yes; Male Contraception: Vasectomy PAST MEDICAL HISTORY Diagnosis Date Chronic depressive personality disorder Diverticulosis of colon (without mention of hemorrhage) Diverticulosis Fibrocystic breast left Hemorrhage of rectum and anus Incisional hernia without mention of obstruction or gangrene Obesity, unspecified Unspecified hemorrhoids without mention of complication Hemorrhoids PAST SURGICAL HISTORY Procedure Laterality Date APPENDECTOMY DELIVERY ONLY x2 , low cervical ENDOMETRIAL BX W/WO ENDOCERVIX BX W/O DILAT SPX 11/25/2007, 12/03/2009 EXCISION SINGLE EXTERNAL PAPILLA OR TAG ANUS 12/30/05 Excision of hemorrhoidal tag INSERTION OF IUD 10/22/2016 REPAIR FIRST ABDOMINAL WALL HERNIA RPR RECRT INCAL/VNT HERNIA REDUCIBLE 07/24 TONSILLECTOMY PRIMARY/SECONDARY <AGE 13 Tonsillectomy FAMILY HISTORY Problem Relation Age of Onset Breast Cancer Mother developed at 67 Diabetes Father Hypertension Father Diabetes Paternal Aunt Diabetes Paternal Uncle Diabetes Paternal Uncle Diabetes Paternal Grandmother SOCIAL HISTORY Social History Tobacco Use Smoking status: Never Smokeless tobacco: Never Vaping Use Vaping Use: Never used Substance Use Topics Alcohol use: Yes Comment: occassional 3-4x per year Drug use: No REVIEW OF SYSTEMS Abdomen: No abdominal pain, nausea, vomiting, diarrhea, or constipation. No bloating, early satiety, indigestion, or increased flatulence. Bladder: No dysuria, gross hematuria, urinary frequency, urinary urgency, or incontinence Breast: No breast lumps, nipple d/c, overlying skin changes, redness or skin retraction Allergies and current medication updated:Yes EXAM: BP 130/82 Ht 5' 3 (1.60m) Wt 243 lb 3.2 oz (110.3kg) LMP 02/21/2018 BMI 43.09 kg/(m^2). GENERAL: pleasant, female in no apparent distress HEENT: Normocephalic, atraumatic, mucus membranes moist, and no lesions NECK: Supple, full range of motion, no adenopathy, and thyroid normal DERMATOLOGY: Normal, without lesions, non-icteric, and non-hirsute BREAST: soft, non-tender, symmetric, no dominant mass, normal nipple-areolar complex, no lymphadenopathy, and no nipple discharge CHEST: Normal inspiratory effort ABDOMEN: soft, non-tender, and no masses PELVIC: external genitalia normal, normal Bartholin's glands, urethra, Kulpmont's glands, no vulvar lesions, no cervical lesions, good vaginal support, physiologic discharge present, normal appearing perineal body and perianal region BIMANUAL: uterus normal size, shape and consistency, no adnexal masses, and non-tender RECTOVAGINAL: small hemorrhoid on anus NEURO: alert and oriented x3,exam grossly non-focal EXTREMITIES: normal ASSESSMENT/PLAN: 1) Health maintenance: Pap/HPV up to date. Mammogram up to date 2) Follow up one year or sooner as needed Penelope Frank MD documented in this encounter [facility] 10-20-2023 History of Present illness Narrative Radiology Service Progress Note PATIENT NAME: Marie Jon DATE OF SERVICE: October 20, 2023 TIME: 7:13 AM PATIENT IDENTITY VERIFICATION COMPLETED USING TWO (2) IDENTIFIERS: Name and Date of confirmed by patient verbally. FALL SCREENING: Has the patient had 2 falls in the last year or 1 fall with injury or currently using an Ambulatory Assistive Device (Walker, Cane, Wheelchair, Crutches, etc.)? No PATIENT GENDER DATA: Female. status: : No status: NO. PATIENT RELEVANT IMPLANT DATA REVIEWED: Not Applicable RADIOLOGY DEPARTMENT: Mammography PERIPHERAL IV DATA: Not applicable SIGNED BY: Vania Prescott October 20, 2023 7:13 AM documented in this encounter [facility] 03-11-2023 History of Present illness Narrative Marie is a 62 year old who presents for an annual gynecologic exam with complaints, Bowel movements are slender and she wants to know if she should see a surgeon. She had hemorrhoids since her last and is unsure if this is what is causing it. Sometimes notices blood streaks on the outside every couple months. . Postmenopausal: Yes since age 56 HRT use: No. Last Pap: 12/08/2017 normal HPV: 12/06/2017 negative History of abnormal pap: No Last mammogram: 2020 normal History of abnormal mammogram: No Sexually active: Yes History of STDS: None Patient concerns for STD exposure: No. Hot flashes: Yes Once a week Night sweats: No Vaginal dryness: No Mood swings: Yes. Periods of happiness and sadness, happen once or twice a month. OB History T0 L3 SAB0 IAB0 Ectopic0 Multiple0 Live Births0 Contract Attorney History LMP: 02/21/2018 (Within Weeks), Postmenopausal Age at Menarche: Age at First : Age at Menopause: Contract Attorney History Comments: Sexual Activity: Yes; Male Contraception: Vasectomy PAST MEDICAL HISTORY Diagnosis Date Chronic depressive personality disorder Diverticulosis of colon (without mention of hemorrhage) Diverticulosis Fibrocystic breast left Hemorrhage of rectum and anus Incisional hernia without mention of obstruction or gangrene Obesity, unspecified Unspecified hemorrhoids without mention of complication Hemorrhoids PAST SURGICAL HISTORY Procedure Laterality Date APPENDECTOMY DELIVERY ONLY x2 , low cervical ENDOMETRIAL BX W/WO ENDOCERVIX BX W/O DILAT SPX 11/25/2007, 12/03/2009 EXCISION SINGLE EXTERNAL PAPILLA OR TAG ANUS 12/30/05 Excision of hemorrhoidal tag INSERTION OF IUD 10/22/2016 REPAIR FIRST ABDOMINAL WALL HERNIA RPR RECRT INCAL/VNT HERNIA REDUCIBLE 07/24 TONSILLECTOMY PRIMARY/SECONDARY <AGE 13 Tonsillectomy FAMILY HISTORY Problem Relation Age of Onset Breast Cancer Mother developed at 67 Diabetes Father Hypertension Father Diabetes Paternal Grandmother Diabetes Paternal Aunt Diabetes Paternal Uncle Diabetes Paternal Uncle SOCIAL HISTORY Social History Tobacco Use Smoking status: Never Smokeless tobacco: Never Vaping Use Vaping Use: Never used Substance Use Topics Alcohol use: Yes Comment: occassional Drug use: No REVIEW OF SYSTEMS Abdomen: No abdominal pain, nausea, vomiting, diarrhea, or constipation. No bloating, early satiety, indigestion, or increased flatulence. Bladder: No dysuria, gross hematuria, urinary frequency, urinary urgency, or incontinence Breast: No breast lumps, nipple d/c, overlying skin changes, redness or skin retraction Allergies and current medication updated: yes TEACHING PHYSICIAN NOTE OF PERSONAL INVOLVEMENT IN CARE: I have personally seen and examined the patient and performed the medical decision-making components. I have reviewed the medical student documentation and verified the findings in the note as written. Any additions or changes are noted in bold/italics. Signature: Kat Koehler Date: 03/11/2023 Time: 9:47 AM EXAM: BP 128/84 Ht 5' 3.25 (1.61m) Wt 252 lb (114.3kg) LMP 02/21/2018 BMI 44.26 kg/(m^2). GENERAL: pleasant, female in no apparent distress HEENT: Normocephalic, atraumatic, mucus membranes moist, and no lesions NECK: Supple, full range of motion, no adenopathy, and thyroid normal DERMATOLOGY: Normal, without lesions, non-icteric, and non-hirsute BREAST: soft, non-tender, symmetric, no dominant mass, normal nipple-areolar complex, no lymphadenopathy, and no nipple discharge CHEST: Normal inspiratory effort ABDOMEN: soft, non-tender, and no masses PELVIC: external genitalia normal, normal Bartholin's glands, urethra, Kulpmont's glands, no vulvar lesions, no cervical lesions, good vaginal support, physiologic discharge present, normal appearing perineal body and perianal region, BIMANUAL: uterus normal size, shape and consistency, no adnexal masses, and non-tender, limited by habitus RECTOVAGINAL: deferred. NEURO: alert and oriented x3,exam grossly non-focal EXTREMITIES: normal ASSESSMENT/PLAN: 1) Health maintenance: Pap done with HPV. Mammogram ordered Colon cancer screening: recommended consult due to h/o blood in stool, may be from hemorrhoids 2) Follow up one year or sooner as needed Kat Koehler MD documented in this encounter [facility] Evaluation note Diagnosis Encounter for gynecological examination (general) (routine) without abnormal findings- Primary Encounter for screening for human papillomavirus (HPV) Special screening examination for human papillomavirus (HPV) Pap smear for cervical cancer screening Screening for malignant neoplasm of the cervix Encounter for screening mammogram for breast cancer Blood in stool [facility] assessment information [facility] Work Phone: Evaluation note* Diagnosis Onset Date Resolution Status Change in bowel habit acute Hemorrhoids acute [facility] Work Phone: evaluation note* Diagnosis Encounter for gynecological examination (general) (routine) without abnormal findings Encounter for screening mammogram for breast cancer [facility] Diagnosis Encounter for gynecological examination (general) (routine) without abnormal findings- Primary Encounter for screening mammogram for breast cancer Dense breast tissue [facility]* Diagnosis Encounter for screening mammogram for breast cancer Dense breast tissue [facility] (n[facility]ative)* Diagnostic Procedure Only (Routine) - Closed Specialty Diagnoses / Procedures Referred By Contarturo t Referred To Contact [facility] Diagnoses Encounter for gynecological examination (general) (routine) without abnormal findings Encounter for screening mammogram for breast cancer Procedures MATILDA SCREENING W DAQUAN SCREENING DIGITAL BREAST TOMOSYNTHESIS BI SCREENING MAMMOGRAPHY BI 2-VIEW BREAST INC CAD Kat Koehler MD [address] [place] [address] [place] [phone] Referral ID Status Reason Start Date Expiration Date V isits Requested Visits Authorized [id number] Closed Auto-Generate d Referral 03/11/2023 04/09/[address] [facility] Diagnostic Procedure Only (Routine) - Authorized Specialty Diagnoses / Procedures Referred By Contarturo t Referred To Contact [facility] Diagnoses Encounter for screening mammogram for breast cancer Dense breast tissue Procedures MATILDA SCREENING W DAQUAN SCREENING DIGITAL BREAST TOMOSYNTHESIS BI SCREENING MAMMOGRAPHY BI 2-VIEW BREAST INC CAD Penelope Frank MD [address] [place] [address] [facility] [address] [place] [address] Referral ID Status Reason Start Date Expiration Date Visits Requested Visits Authorized [id number] Authorized Auto-Generat ed Referral 05/02/2024 06/01/2025 1 1 [facility] for visit Narrative* Diagnostic Procedure Only (Routine) - Closed Specialty Diagnoses / Procedures Referred By Contac t Referred To Contact [facility] Diagnoses Encounter for gynecological examination (general) (routine) without abnormal findings Encounter for screening mammogram for breast cancer Procedures MATILDA SCREENING W DAQUAN SCREENING DIGITAL BREAST TOMOSYNTHESIS BI SCREENING MAMMOGRAPHY BI 2-VIEW BREAST INC CAD Kat Koehler MD [address] [place] [address] [facility] [address] [place] [address] Referral ID Status Reason Start Date Expiration Date V isits Requested Visits Authorized [id number] Closed Auto-Generate d Referral 03/11/2023 04/09/2024 1 1 [facility] for visit Narrative* Diagnostic Procedure Only (Routine) - Closed Specialty Diagnoses / Procedures Referred By Contac t Referred To Contact [facility] Diagnoses Encounter for screening mammogram for breast cancer Dense breast tissue Procedures MATILDA SCREENING W DAQUAN SCREENING DIGITAL BREAST TOMOSYNTHESIS BI SCREENING MAMMOGRAPHY BI 2-VIEW BREAST INC CAD Penelope Frank MD [address] [place] [address] Br Imaging [address] [place] [address] Referral ID Status Reason Start Date Expiration Date V isits Requested Visits Authorized [id number] Closed Auto-Generate d Referral 05/02/2024 06/01/[address] [facility] Reason for Referral Specialty Diagnoses / Procedures Referred By Contac t Referred To Contact General Surgery Diagnoses Blood in stool Procedures CONSULT TO GENERAL SURGERY OFFICE/OUTPATIENT CARE ONE AT [facility] 60-74 MINUTES Kat Koehler MD [address] [place] [address] Referral ID Status Reason Start Date Expiration Date Visits Requested Visits Authorized [id number] Authorized PCP Requested Referral 03/11/2023 03/10/2024 1 1 Specialty Diagnoses / Procedures Referred By Keyona t Referred To Contact [facility] Diagnoses Encounter for gynecological examination (general) (routine) without abnormal findings Encounter for screening mammogram for breast cancer Procedures AMTILDA SCREENING W DAQUAN SCREENING DIGITAL BREAST TOMOSYNTHESIS BI SCREENING MAMMOGRAPHY BI 2-VIEW BREAST INC Kat Diane MD [address] [place] [address] Br Imaging [address] [place] [address] Referral ID Status Reason Start Date Expiration Date Visits Requested Visits Authorized [id number] Pending Review Auto-Generat ed Referral 03/11/2023 04/09/2024 1 1 Advance Directives No Advanced Directives Records Found Advance Directive Response Recorded Date/ Time Advance Directives No September 10:22am Living Will No October 19, 2 016 10:22am Power of Table Attendant No October 19, 2016 10:22am Advance Directive Response Recorded Date/ Time Advance Directives No September 10:22am Living Will No May 26, 2023 1 2:19pm Power of Table Attendant No May 26, 2023 12:19pm Chief Complaint and Reason for Visit Chief Complaint BLOOD IN STOOL Reason for Visit Change in bowel habi t Hemorrhoids Family History No Family History Records Found Relationship Condition Age at Onset Recorded Date/T holden mother Diabetes mellitus Unknown Malignant neoplasm of breast Unknown father Malignant neoplasm Unknown mother Hypertension Unknown Summary Purpose Additional Source Comments Source Comments (unrecognize d section and content) In the event this informatio n is protected by the Federal Confidentiality of Alcohol and Drug Abuse Patient Records regulations: The Federal rules restrict any use of the information to criminally investigate or prosecute any alcohol or drug abuse patient.[facility] the event this information is protected by the Federal Confidentiality of Alcohol and Drug Abuse Patient Records regulations: The Federal rules restrict any use of the information to criminally investigate or prosecute any alcohol or drug abuse patient.[facility] the event this information is protected by the Federal Confidentiality of Alcohol and Drug Abuse Patient Records regulations: The Federal rules restrict any use of the information to criminally investigate or prosecute any alcohol or drug abuse patient.[facility] the event this information is protected by the Federal Confidentiality of Alcohol and Drug Abuse Patient Records regulations: The Federal rules restrict any use of the information to criminally investigate or prosecute any alcohol or drug abuse patient.[facility] Reason for Visit (unrecogniz ed section and content) Reason Comments Yearly Exam Reason Comments [facility] Teams (unrecognized sec tion and content) [employer] Specialist Relationship Specialty Start Date End Date Tommy Dacosta MD [address] [place] [id number] PCP - General 04/10/04 Team Status: Active Member Role Status Dates Dr. Tommy Krause MD Family Provider Active Dr. Tomas Carlson MD Primary Care Provider Activ e Team Status: Inactive Member Role Status Dates Dr. Tomas Carlson MD Primary Care Provider, Attending Provider, Referring Provider Active Team Status: Active Member Role Status Dates Dr. Tommy Krause MD Family Provider Active Chanel Edwards DO Primary Care Provider Active Team Status: Inactive Member Role Status Dates Dr. Tomas Carlson MD Referring Provider Active Dr. Saúl Rocha MD Attending Provider Active Chanel Edwards DO Primary Care Provider Active Team Status: Active Member Role Status Dates Chanel Edwards DO Primary Care Provider Active Dr. Saúl Rocha MD Attending Provid er, Referring Provider, Other Provider Active Team Status: Inactive Member Role Status Dates Chanel Edwards DO Primary Care Provider Active Dr. Saúl Rocha MD Attending Provider, Referring Provider Active Team Status: Inactive Member Role Status Dates Chanel Edwards DO Primary Care Provider, Attending Provider Active [employer] Specialist Relationship Specialty Start Date End Date Tommy Dacosta MD [address] [place] [address] PCP - General 04/10/04 [employer] Specialist Relationship Specialty Start Date End Date Tommy Christian MD [address] [facility] [address] [place] [address] PCP - General Family Medicine 04/27/24 [employer] Specialist Relationship Specialty Start Date End Date Tommy Christian MD [address] [facility] [address] [place], [place] [id number] PCP - General Family Medicine 04/27/24 Goals (unrecognized section and content) Goals may be documented in a n alternate section INFORMATION SOURCE (unrecogn ized section and content) DATE CREATED AUTHOR 10/25/2024 [facility] DATE CREATED AUTHOR AUTHOR'S ORGANIZ ATION 04/26/2025 [facility] FOR RECORDS PERTAINING TO PATIENTS WHO ARE OR HAVE BEEN ENROLLED IN A CHEMICAL DEPENDENCY/SUBSTANCEABUSE PROGRAM, SOME INFORMATION MAY BE OMITTED. This clinical summary was aggregated from multiple sources. Caution should be exercised in using it in the provision of clinical care. This summary normalizes information from multiple sources, and as a consequence, information in this document may materially change the coding, format and clinical context of patient data. In addition, data may be omitted in some cases. CLINICAL DECISIONS SHOULD BE BASED ON THE PRIMARY CLINICAL RECORDS. [facility] Any.DO [email or web address]. provides no warranty or guarantee of the accuracy or completeness of information in this document.
== END | disposition home or self-care (01) ==
LOC: CT 16:47
PROVIDERS: PCP Family Medicine; Referring Provider Family Medicine; Visit Provider Family Medicine
DX: R10.31 Right lower quadrant pain (principal)
CPT/HCPCS: 74177; Q9967

== ENCOUNTER → 2025-08-29 | Outpatient (CLI) | payer OTHER, SELFPAY ==
[2025-08-29 10:39] LABS: Hematocrit 41.9 % (37-47); Hemoglobin 15.2 g/dL (12.0-15.0); Mean Corp Hgb Conc 36.3 g/dL (32-36); Mean Corpuscular Volume 84.5 fL (81-99); Mean Platelet Vol. 10.8 fl (6.2-12.0); Platelet Count 216 K/mm3 (150-450); RBC Distribution Width CV 12.2 % (11.6-14.6); RBC Distribution Width SD 36.7 fl (35.1-43.9); Red Blood Count 4.96 M/mm3 (4.2-5.4); White Blood Count 5.6 K/mm3 (4.4-11.0)
[2025-08-29 12:29] LABS: AST(SGOT) 62 U/L (<=31); Alanine Aminotransfer ALT/SGPT 87 U/L (<=34); Albumin, Serum 4.2 g/dL (3.4-4.8); Alkaline Phosphatase 87 U/L (35-104); Anion Gap 12 (5-15); BUN 18 mg/dL (4-19); BUN/Creat Ratio 21.6 RATIO (10-20); Calcium,Total 9.7 mg/dL (7.6-11.0); Carbon Dioxide 26.1 mmol/L (21.0-32.0); Chloride 101 mmol/L (98-108); Cholesterol 198 mg/dL (<=200); Globulin 3.0 g/dL (2.2-4.2); Glucose 125 mg/dL (70-99); Low Density Lipoprotein Calc. 120 mg/dL; Potassium 3.5 mmol/L (3.3-5.1); Triglycerides 123 mg/dL; Very Low Density Lipoprotein 25 mg/dL (5-40); Vitamin D,25 Hydroxy 38.6 ng/mL (30-100); cholesterol:hdl ratio screen 3.69
== END | disposition home or self-care (01) ==
LOC: MTLAB 07:32
PROVIDERS: PCP Family Medicine; Referring Provider Surgery; Visit Provider Family Medicine
DX: E78.00 Pure hypercholesterolemia, unspecified (principal); I10 Essential (primary) hypertension; E03.9 Hypothyroidism, unspecified; R53.83 Other fatigue
CPT/HCPCS: 36415; 80053; 80061; 82306; 84439; 84443; 85027